=== PATIENT | female | born 1935 | race Caucasian/White ===

== ENCOUNTER 2016-12-11 12:58 | Day surgery (SDC) | payer MEDICARE, OTHER ==
[~2016-12-11 12:58] MED LIST: APIX5TAB PO; DIOV160T60 PO; DULE200A PO; FLAX10008 PO; HYDR12.56 PO; LEVO25TA36 PO; MONT10 PO; MULT400T PO; NITR.4 SL
--- NOTE | 2016-12-12 08:35 | EKG ---
Date Performed: 12/11/2016 Time Performed: 14:15:14 PTAGE: 81 years EKG: Possible ectopic atrial rhythm Anteroseptal infarct - age undetermined Inferior/lateral ST- T changes are nonspecific Low QRS voltages in precordial leads Abnormal ECG PREVIOUS TRACING : 02/05/2016 11.47 Compared to previous tracing, ectopic atrial rhythm has rep laced possible atrial tachycardia with 2:1 AV conduction. DOCTOR: Shane See Interpretating Date/Time 12/12/2016 08:34:42
--- NOTE | 2016-12-24 08:39 | CF ---
cc: KAYLA TREJO M.D. STUDY DATE 12/11/2016 PROCEDURE PERFORMED Transesophageal echocardiogram. INDICATION History of mitral valve repair, evidence of mitral stenosis. CONSENT A fully informed consent was obtained prior to the procedure. The risks of , bleeding, perforation, aspiration, foreseen and unforeseen complications were reviewed. The patient fully appeared to understand the risks. ANESTHESIA As per the Anesthesia Department. PROCEDURE The patient was anesthetized as per the Anesthesia Department. A RAMILA probe was placed into the esophagus up to 40 cm and a transesophageal echo sonogram was performed of the heart. FINDINGS The left atrial appendage was free of thrombus. The mitral valve was heavily calcified with evidence of a previous ring. There was evidence of mitral stenosis which was calculated at a mitral valve area of 1.35 cm2. There was evidence of moderate tricuspid regurgitation. There was evidence of biatrial enlargement. The aortic valve was also moderately thickened. There was decrease motion of the anterior leaflet of the mitral valve. The posterior leaflet was fixed. The aortic valve moved fairly normally. CONCLUSION 1. Evidence of moderate to severe aortic stenosis with a mitral valve area of 1.35 cm2. 2. Slight thickening of the aortic valve. 3. Biatrial enlargement. 4. Normal LV function. 5. Left atrial appendage free of thrombus. PLAN 1. Continue anticoagulation and medical management. If the patient comes symptomatic, one would have to think of mitral valve surgery. 2. Moderate tricuspid regurgitation also noted. Kayla Trejo MD, FRCP,[facility] /12:40 PM /8:24 AM
== END 2016-12-11 15:45 | disposition home or self-care (01) ==
LOC: HDOC 12:58 → HDIC 12:59 → HDOC 15:45
PROVIDERS: ATTEND Internal Medicine Cardiovascular Disease
DX: I08.3 Combined rheumatic disorders of mitral, aortic and tricuspid valves (principal); I51.7 Cardiomegaly; I25.10 Atherosclerotic heart disease of native coronary artery without angina pectoris; I25.2 Old myocardial infarction; I42.9 Cardiomyopathy, unspecified; I10 Essential (primary) hypertension; E78.5 Hyperlipidemia, unspecified; E03.9 Hypothyroidism, unspecified; I95.9 Hypotension, unspecified; R60.9 Edema, unspecified; Z95.1 Presence of aortocoronary bypass graft; Z79.01 Long term (current) use of anticoagulants; Z79.899 Other long term (current) drug therapy
CPT/HCPCS: 93005; 93312; 93320; 93325

== ENCOUNTER 2017-04-03 15:44 | Inpatient (IN) | payer MEDICARE, OTHER ==
[2017-04-03] VITALS (10 sets, daily range): BP systolic 86–118; BP diastolic 45–68; PULSE 64–82; RESP 16–22; TEMP 98.3; O2SAT 94–100
[~2017-04-03] VITALS: Ht 152.4 cm; Wt 79.2 kg
[2017-04-03] MEDS ORDERED: WARF-23 PO (16:11)
[2017-04-03] MEDS ORDERED: MONT10TA4 PO (16:11)
[2017-04-03] MEDS ORDERED: CHOL5000 PO (16:11)
[2017-04-03] MEDS ORDERED: MULT400T PO (16:11)
[2017-04-03] MEDS ORDERED: FURO1TAB60 PO (16:11)
[2017-04-03] MEDS ORDERED: LEVO75TA3 PO (16:11)
[2017-04-03] MEDS ORDERED: POTA-163 PO (16:11)
[2017-04-03] MEDS ORDERED: FLAX10008 (16:11)
[2017-04-03] MEDS ORDERED: VALS1TAB70 PO (16:11)
--- NOTE | 2017-04-03 16:26 | PD ---
HPI Chief Complaint: lightheadedness Time Seen by Provider: 16:05 Travel History International Travel<30 days: No Contact w/Intl Traveler<30days: No Traveled to known affect area: No History of Present Illness HPI 82yo F with PMH of afib on coumadin, CAD s/p CABG 20 years ago was sent in by PMD's office for cardiac enzymes and possible IVF. Pt was seen at PMD's office today because she has been feeling jittery and lightheaded for 3 days. Said she feels more lightheaded when she stands up from sitting position. She does not have any syncopal episodes and no specific episode where she felt like she almost pass out. BP was low in PMD's office at 90/60. Denies any fever, chest pain, sob, n/v, abdominal pain, focal weakness or numbness. PFSH Past Medical History Hx Anticoagulant Therapy: Yes Asthma: Yes Atrial Fibrillation: Yes Heart Rhythm Problems: Yes Cardiac Catheterization: Yes Cardiovascular Problems: Yes High Cholesterol: Yes Coronary Artery Disease: Yes Diminished Hearing: Yes (L EAR) Endocrine: No Genitourinary: No Hypertension: Yes Musculoskeletal: No Neurologic: No Respiratory: Yes (ASTHMA) Immunizations Current: Yes Myocardial Infarction: Yes Thyroid Disease: Yes Tetanus Vaccination: < 5 Years Influenza Vaccination: Yes : 2 Para: 2 Past Surgical History Abdominal Surgery: Yes Appendectomy: Yes (1965) Cardiac Surgery: Yes (MITRAL VALVE REPAIR) Coronary Artery Bypass Graft: Yes Gynecologic Surgery: Yes (HYSTERECTOMY 1995) Hysterectomy: Yes Other Surgery: Yes (ABLASIONS/CARDOVERSIONS) Social History Alcohol Use: No Tobacco Use: No Substance Use: No Allergies-Medications (Allergen,Severity, Reaction): Coded Allergies: albuterol (Verified Allergy, Unknown, 04/03/17) amlodipine (Verified Allergy, Unknown, 04/03/17) atorvastatin (Verified Allergy, Unknown, 04/03/17) choline fenofibrate (Verified Allergy, Unknown, 04/03/17) colesevelam (Verified Allergy, Unknown, 04/03/17) dabigatran etexilate (Verified Allergy, Unknown, 04/03/17) lisinopril (Verified Allergy, Unknown, 04/03/17) pitavastatin (Verified Allergy, Unknown, 04/03/17) rosuvastatin (Verified Allergy, Unknown, 04/03/17) Reported Meds & Prescriptions Reported Meds & Active Scripts Active Reported Vitamin D3 (Cholecalciferol) 2,000 Unit Cap 2,000 Units PO DAILY Levothyroxine (Levothyroxine Sodium) 50 Mcg Tab 50 Mcg PO DAILY Spironolactone 25 Mg Tab 25 Mg PO BIDPC Torsemide 20 Mg Tab 20 Mg PO EVERY OTHER DAY Flaxseed Oil [place]-3 (Flaxseed (Linseed)) 1,000 Mg Cap Montelukast (Montelukast Sodium) 10 Mg Tab 10 Mg PO HS Valsartan 320 Mg Tab 320 Mg PO DAILY Multaq (Dronedarone) 400 Mg Tab 400 Mg PO BID Warfarin 5 Mg Tab 5 Mg PO DAILY Review of Systems Except as stated in HPI: all other systems reviewed are Neg Physical Exam Narrative GENERAL: 82yo F not in distress. SKIN: Focused skin assessment warm/dry. HEAD: Atraumatic. Normocephalic. EYES: Pupils equal and round at 3mm bilaterally. EOMI. ENT: No nasal bleeding or discharge. Mucous membranes pink and moist. NECK: Trachea midline. No JVD. CARDIOVASCULAR: Irregular rhythm at 71bpm. No murmur appreciated. RESPIRATORY: No accessory muscle use. Clear to auscultation. Breath sounds equal bilaterally. GASTROINTESTINAL: Abdomen soft, non-tender, nondistended. MUSCULOSKELETAL: No obvious deformities. No clubbing. No cyanosis. Trace bilateral lower ext edema. NEUROLOGICAL: Awake and alert. No obvious cranial nerve deficits. Motor grossly within normal limits. Normal speech. PSYCHIATRIC: Appropriate mood and affect; insight and judgment normal. Data Data Last Documented VS Vital Signs Date Time Temp Pulse Resp B/P (MAP) Pulse Ox O2 Delivery O2 Flow Rate FiO2 04/03/17 19:10 65 18 100/54 (69) 95 Room Air 04/03/17 15:55 98.3 Orders Orders Basic Metabolic Panel (Bmp) (04/03/17 16:20) Complete Blood Count With Diff (04/03/17 16:20) Magnesium (Mg) (04/03/17 16:20) Troponin I (04/03/17 16:20) Urinalysis - C+S If Indicated (04/03/17 16:20) Orthostatic Vital Signs (04/03/17 16:20) Prothrombin Time / Inr (Pt) (04/03/17 16:21) Act Partial Throm Time (Ptt) (04/03/17 16:21) Electrocardiogram (04/03/17 15:51) Sodium Chlor 0.9% 1000 Ml Inj (Ns 1000 M (04/03/17 17:45) Potassium, Serum (K) (04/03/17 20:36) Ecg Monitoring (04/03/17 17:36) Oximetry (04/03/17 17:36) Sodium Polysty Sulfate Liq (Kayexalate L (04/03/17 17:45) Sodium Chlor 0.9% 1000 Ml Inj (Ns 1000 M (04/03/17 18:45) Urine Culture (04/03/17 18:45) Admit To Inpatient (04/03/17 ) Inpatient Certification (04/03/17 ) Cbc No Diff, Includes Plts (04/04/17 05:00) Cbc No Diff, Includes Plts (04/05/17 05:00) Cbc No Diff, Includes Plts (04/06/17 05:00) Cbc No Diff, Includes Plts (04/07/17 05:00) Cbc No Diff, Includes Plts (04/08/17 05:00) Cbc No Diff, Includes Plts (04/09/17 05:00) Cbc No Diff, Includes Plts (04/10/17 05:00) Basic Metabolic Panel (Bmp) (04/04/17 05:00) Basic Metabolic Panel (Bmp) (04/05/17 05:00) Basic Metabolic Panel (Bmp) (04/06/17 05:00) Basic Metabolic Panel (Bmp) (04/07/17 05:00) Basic Metabolic Panel (Bmp) (04/08/17 05:00) Basic Metabolic Panel (Bmp) (04/09/17 05:00) Basic Metabolic Panel (Bmp) (04/10/17 05:00) Magnesium Oxide (Mag-Ox) (04/03/17 19:00) Magnesium Sulfate Inj (Magnesium Sulfate (04/03/17 19:00) Magnesium Sulfate Inj (Magnesium Sulfate (04/03/17 19:00) Potassium Chlor 20 Meq Premix (Kcl 20 Me (04/03/17 19:00) Potassium Chlor 20 Meq Premix (Kcl 20 Me (04/03/17 19:00) Potassium Chlor 40 Meq Premix (Kcl 40 Me (04/03/17 19:00) Potassium Chlor 40 Meq Premix (Kcl 40 Me (04/03/17 19:00) Potassium Phosphate (K-Phos) (04/03/17 19:00) Potassium Phosphate (K-Phos) (04/03/17 19:00) Potassium Phosphate Inj (Potassium Phosp (04/03/17 19:00) Sodium Phosphate Inj (Sodium Phosphate I (04/03/17 19:00) ^ Medication Admin Instruction (04/03/17 19:00) Notify Dr: Other (04/03/17 19:00) Resp Ezpap/Pep Therapy (04/03/17 19:00) Resp Acapella/Pep/Chest Vibra (04/03/17:00) Resp Incentive Spirometry (04/03/17 19:00) Code Status (04/03/17:00) Activity Bed Rest (04/03/17:00) Elevate Head Of Bed (04/03/17 19:00) Neuro Checks . ORDERED (04/03/17:00) Acetaminophen (Tylenol) (04/03/17 19:00) Ondansetron Inj (Zofran Inj) (04/03/17 19:00) Albuterol-Ipratropium Neb (Duoneb Neb) (04/03/17 19:00) Consult Cardiology (04/03/17 ) Imaging Science Professor / Telemetry JUAN.Q8H (04/03/17 19:00) Scd Bilateral/Knee High JUAN.BID (04/03/17 19:00) ^ Initiate Protocol (04/03/17 19:00) Instruction (04/03/17 19:00) [facility] (04/03/17 19:00) Chlorhexidine 2% Cloth (Chlorhexidine 2% (04/04/17 04:00) Chlorhexidine 2% Cloth (Chlorhexidine 2% (04/03/17 19:00) Mrsa Pcr Surveillance (04/03/17 19:00) Docusate Sodium-Senna (Emelina-Colace) (04/03/17 21:00) Coag Profile (04/04/17 05:00) Coag Profile (04/05/17 05:00) Coag Profile (04/06/17 05:00) Coag Profile (04/07/17 05:00) Coag Profile (04/08/17 05:00) Troponin I (04/03/17 23:59) Troponin I (04/04/17 05:59) Troponin I (04/04/17 11:59) Troponin I (04/04/17 17:59) Sodium (Na) (04/03/17 20:30) Diet Clear Liquid (04/03/17 Dinner) Npo After Midnight W/ Po Meds (04/04/17 Breakfast) Cholecalciferol (Vitamin D3) (04/04/17 09:00) Levothyroxine (Synthroid) (04/04/17 06:00) Montelukast (Singulair) (04/03/17 21:00) Admit Order (Ed Use Only) (04/03/17 19:14) Echo 2d Comp With Doppler (04/04/17 19:00) Labs Laboratory Tests Test 04/03/17 16:30 04/03/17 18:45 White Blood Count 10.2 TH/MM3 Red Blood Count 3.60 MIL/MM3 Hemoglobin 10.8 GM/DL Hematocrit 32.3 % Mean Corpuscular Volume 89.6 FL Mean Corpuscular Hemoglobin 29.9 PG Mean Corpuscular Hemoglobin Concent 33.4 % Red Cell Distribution Width 14.5 % Platelet Count 308 TH/MM3 Mean Platelet Volume 6.9 FL Neutrophils (%) (Auto) 72.6 % Lymphocytes (%) (Auto) 17.0 % Monocytes (%) (Auto) 7.4 % Eosinophils (%) (Auto) 1.2 % Basophils (%) (Auto) 1.8 % Neutrophils # (Auto) 7.4 TH/MM3 Lymphocytes # (Auto) 1.7 TH/MM3 Monocytes # (Auto) 0.8 TH/MM3 Eosinophils # (Auto) 0.1 TH/MM3 Basophils # (Auto) 0.2 TH/MM3 CBC Comment DIFF FINAL Differential Comment Prothrombin Time 25.5 SEC Prothromb Time International Ratio 2.5 RATIO Activated Partial Thromboplast Time 32.8 SEC Blood Urea Nitrogen 46 MG/DL Creatinine 1.70 MG/DL Random Glucose 94 MG/DL Calcium Level 9.8 MG/DL Magnesium Level 2.4 MG/DL Sodium Level 128 MEQ/L Potassium Level 5.6 MEQ/L Chloride Level 96 MEQ/L Carbon Dioxide Level 23.4 MEQ/L Anion Gap 9 MEQ/L Estimat Glomerular Filtration Rate 29 ML/MIN Troponin I 0.27 NG/ML Urine Color YELLOW Urine Turbidity SLIGHT Urine pH 5.5 Urine Specific [place] 1.014 Urine Protein NEG mg/dL Urine Glucose (UA) NEG mg/dL Urine Ketones NEG mg/dL Urine Occult Blood NEG Urine Nitrite NEG Urine Bilirubin NEG Urine Leukocyte Esterase MOD Urine RBC 0-3 /hpf Urine WBC 25-49 /hpf Urine WBC Clumps MOD Urine Squamous Epithelial Cells 0-5 /hpf Urine Bacteria MANY /hpf Microscopic Urinalysis Comment CULTURE INDICATED MDM Medical Decision Making Medical Screen Exam Complete: Yes Emergency Medical Condition: Yes Interpretation(s) EKG: Afib at 71bpm. ST depression I, aVL. Q wave v2, V3 unchanged from prior at 11/2016. Differential Diagnosis Arrhythmia vs. dehydration vs. anemia vs. electrolyte abnormality Narrative Course 82yo F with PMH of afib, CAD s/p CABG 20 years ago presents to the ED with lightheadedness for 3 days. Labs reviewed, no leukocytosis. H/H 10.8/32.3 which is slightly lower than prior. Mild hyponatremia at 128. Mild hyperkalemia at 5.6. Will give kayexylate. BUN/creatinine elevated at 46/1.70 which is elevated from baseline. Troponin is elevated at 0.27. Pt has no chest pain but sob with exertion and significant cardiac history. INR 2.5. Discussed with Dr. Albright who is covering Dr. Trejo. Recommended admission and repeat troponin, CPK and EKG. Recommend NS IVF 50cc/hr and said she will probably not have cardiac cath today since her INR is 2.5. Discussed with Dr. Ventura who is requesting resource room special education teacher admission instead. Discussed with Dr. Chacko who accepted the patient and wants the patient to remain in the [place] ICU. Critical Care Narrative Aggregate critical care time was 50 minutes. Time to perform other separately billable procedures was not included in the critical care time. My time did not include minutes spent treating any other patients simultaneously or on activities that did not directly contribute to the patient's treatment. The services I provided to this patient were to treat and/or prevent clinically significant deterioration that could result in: cardiovascular collapse or . I provided critical care services requiring my management, as noted below: Chart data review, documentation time, medication orders and management, vital sign assessments/reviewing monitor data, ordering and reviewing lab tests, ordering and interpreting/reviewing x-rays and diagnostic studies, care of the patient and discussion of the patient with the admitting physicians. Diagnosis Primary Impression: Elevated troponin Additional Impression: RAMU (acute kidney injury) Admitting Information Admitting Physician Requests: Admit Allison Guzman DO Apr 03, 2017 16:26
[2017-04-03 16:41] LABS: AUTOMATED NEUTROPHIL # 7.4 TH/MM3 (1.8-7.7); BASOPHIL # 0.2 TH/MM3 (0-0.2); BASOPHIL % 1.8 % (0.0-2.0); EOSINOPHIL # 0.1 TH/MM3 (0-0.4); EOSINOPHIL % 1.2 % (0.0-4.0); HEMATOCRIT 32.3 % (35.0-46.0); HEMO FLAGS DIFF FINAL; LYMPHOCYTE # 1.7 TH/MM3 (1.0-4.8); MEAN CELL VOLUME 89.6 FL (80.0-100.0); MEAN CORPUSCULAR HEMOGLOBIN 29.9 PG (27.0-34.0); MEAN CORPUSCULAR HGB CONC 33.4 % (32.0-36.0); MONO % 7.4 % (0.0-8.0); NEUT % 72.6 % (16.0-70.0); PLATELET COUNT 308 TH/MM3 (150-450); RED CELL DISTRIBUTION WIDTH 14.5 % (11.6-17.2); WHITE BLOOD COUNT 10.2 TH/MM3 (4.0-11.0)
[2017-04-03 16:49] LABS: POTASSIUM 5.6 MEQ/L (3.5-5.1)
[2017-04-03 16:52] LABS: BICARBONATE 23.4 MEQ/L (21.0-32.0); MAGNESIUM 2.4 MG/DL (1.5-2.5)
[2017-04-03 16:55] LABS: APTT (PATIENT) 32.8 SEC (24.3-30.1); INTERNATIONAL NORMALIZED RATIO 2.5 RATIO; PROTHROMBIN TIME - PATIENT 25.5 SEC (9.8-11.6)
[2017-04-03] MEDS ORDERED: SODIUM POLYSTYRENE SULFONATE SUSP 15 GM/60 ML CUP PO ONE (17:45)
[2017-04-03] MEDS ORDERED: SODIUM CHLOR 0.9% 1000 ML INJ 1,000 ML IV ONE (17:45)
[2017-04-03] MEDS ORDERED: LEVO50TA4 PO (18:02)
[2017-04-03] MEDS ORDERED: VITA2000 PO (18:02)
[2017-04-03] MEDS ORDERED: TORS20TA PO (18:02)
[2017-04-03] MEDS ORDERED: SPIR25TA PO (18:02)
[2017-04-03 18:49] LABS: BLOOD, URINE NEG (NEG); GLUCOSE,URINE NEG (NEG); KETONE, URINE NEG (NEG); NITRITE,URINE NEG (NEG); PH, URINE 5.5 (5.0-8.5)
[2017-04-03 18:55] LABS: URINE COLOR YELLOW (YELLW/STRAW)
[2017-04-03 18:56] LABS: BACTERIA, URINE MANY /hpf; COMMENT (UR) CULTURE INDICATED; CULTURE IF INDICATED CULTURE INDICATED; RBC, URINE 0-3 /hpf (0-3); SQUAMOUS EPITHELIAL CELL URINE 0-5 /hpf (0-5)
[2017-04-03] MEDS ORDERED: MISCELLANEOUS NURSING INFORMATION XX SCH (19:00)
[2017-04-03] MEDS ORDERED: POTASSIUM PHOSPHATE MONOBASIC 500 MG TAB PO PRN (19:00)
[2017-04-03] MEDS ORDERED: SODIUM PHOSPHATE INJ 30 MMOL in SODIUM CHLOR 0.9% 250 ML INJ 240 ML IV PRN (19:00)
[2017-04-03] MEDS ORDERED: POTASSIUM PHOSPHATE INJ 30 MMOL in SODIUM CHLOR 0.9% 250 ML INJ 250 ML IV PRN (19:00)
[2017-04-03] MEDS ORDERED: POTASSIUM CHLOR 20 MEQ PREMIX 100 ML IV PRN ×2 (19:00)
[2017-04-03] MEDS ORDERED: MAGNESIUM SULFATE INJ 2 GM in SODIUM CHLORIDE 0.9% INJ 96 ML IV PRN (19:00)
[2017-04-03] MEDS ORDERED: CHLORHEXIDINE GLUCONATE 2 % 1 PACK (2 CLOTHS) TOP PRN (19:00)
[2017-04-03] MEDS ORDERED: POTASSIUM PHOSPHATE MONOBASIC 500 MG TAB PO/TUBE PRN (19:00)
[2017-04-03] MEDS ORDERED: POTASSIUM CHLOR 40 MEQ PREMIX 100 ML IV PRN ×2 (19:00)
[2017-04-03] MEDS ORDERED: MAGNESIUM OXIDE 400 MG TAB PO PRN (19:00)
[2017-04-03] MEDS ORDERED: MAGNESIUM SULFATE INJ 4 GM in SODIUM CHLORIDE 0.9% INJ 92 ML IV PRN (19:00)
[2017-04-03] MEDS ORDERED: ONDANSETRON HCL 4 MG/2 ML VIAL IV PUSH PRN (19:00)
[2017-04-03] MEDS ORDERED: RESP: ALBUTEROL 2.5 MG/IPRATROPIUM 0.5 MG NEB (PRN) INH (19:00)
[2017-04-03] MEDS: SODIUM CHLOR 0.9% 1000 ML INJ 1,000 ML IV SCH (19:30)
[2017-04-03] MEDS ORDERED: cefTRIAXone INJ 1,000 MG in SODIUM CHLORIDE 0.9% INJ 100 ML IV SCH (20:00)
[2017-04-03] MEDS: DOCUSATE SODIUM 50 MG/SENNA 8.6 MG TAB PO SCH (21:00)
[2017-04-03] MEDS: CHLORHEXIDINE GLUCONATE 2 % 1 PACK (2 CLOTHS) TOP SCH (21:11)
[2017-04-03] MEDS: MONTELUKAST SODIUM 10 MG TAB PO SCH (21:11)
[2017-04-04] VITALS (30 sets, daily range): BP systolic 82–127; BP diastolic 43–69; PULSE 78–104; RESP 12–38; TEMP 98.2–99.2; O2SAT 95–98
[2017-04-04 04:34] LABS: HEMATOCRIT 27.8 % (35.0-46.0); MEAN CELL VOLUME 87.5 FL (80.0-100.0); MEAN CORPUSCULAR HEMOGLOBIN 30.2 PG (27.0-34.0); MEAN CORPUSCULAR HGB CONC 34.5 % (32.0-36.0); PLATELET COUNT 249 TH/MM3 (150-450); RED BLOOD COUNT 3.18 MIL/MM3 (4.00-5.30); REVIEW FLAG FINAL; WHITE BLOOD COUNT 8.4 TH/MM3 (4.0-11.0)
[2017-04-04 04:45] LABS: APTT (PATIENT) 33.7 SEC (24.3-30.1); INTERNATIONAL NORMALIZED RATIO 2.9 RATIO; PROTHROMBIN TIME - PATIENT 29.5 SEC (9.8-11.6)
[2017-04-04 05:00] LABS: BICARBONATE 20.9 MEQ/L (21.0-32.0)
[2017-04-04] MEDS ORDERED: ALBUMIN 5% INJ 500 ML IV ONE (05:30)
[2017-04-04] MEDS: LEVOTHYROXINE SODIUM 50 MCG TAB PO SCH (05:58)
--- NOTE | 2017-04-04 07:19 | HHI.HP ---
[facility] Service Critical Care Medicine Primary Care Physician Angeline Mitchell MD Admission Diagnosis RAMU, elevated troponin Diagnosis: (1) Normocytic anemia Diagnosis: Secondary (2) Severe mitral stenosis by prior echocardiogram Diagnosis: Secondary (3) Hyponatremia Diagnosis: Secondary (4) History of atrial flutter Diagnosis: Secondary (5) Chronic anticoagulation Diagnosis: Principal (6) Hypothyroidism Diagnosis: Secondary (7) Dyslipidemia Diagnosis: Secondary (8) History of hypertension Diagnosis: Secondary (9) Hyperkalemia Diagnosis: Secondary (10) Cardiomyopathy Diagnosis: Principal (11) Dehydration Diagnosis: Principal (12) Dizziness Diagnosis: Principal (13) Elevated troponin Diagnosis: Principal (14) RAMU (acute kidney injury) Diagnosis: Principal Chief Complaint: "I had don't feel good". Dizzy Travel History International Travel<30 Days: No Contact w/Intl Traveler <30 Da: No Traveled to Known Affected Are: No History of Present Illness This is an 82-year-old female. Did admission 04/03/2017. Past medical history includes cardiomyopathy, hard of hearing left ear, coronary artery disease status post CABG 3 with mitral valve repair, atrial flutter with history of ablation, dyslipidemia, hypertension hypothyroidism.. Yesterday afternoon, patient was sent to [place] ED for primary care physician's office for elevated cardiac enzymes and possible IVF. Pt was seen at primary care physician's office 04/03 secondary to "feeling lightheaded and not herself for several days. Said she feels more lightheaded when she stands up from sitting position. She does not have any syncopal episodes and no specific episode where she felt like she almost pass out. In the ED, patient was noted to be hypotensive. Patient elevated potassium 5.6. Creatinine 1.7. Elevated troponin 0.20. She denies any chest pain or shortness of breath. Received 2 L normal saline along with 250 cc's of 5% albumin. EKG revealed Q waves in V2 and V3 with intermittent first AV block possibly intermittent A. fib. Cardiology was notified and recommended gentle hydration with normal saline at 50 cc an hour with consultation for further evaluation. Warfarin has been held for the request. The present time, patient is currently going of back pain and "wants to go home ". She says she feels better after hydration prior to admission. Her blood pressure is currently within normal limits.. Review of Systems Constitutional: COMPLAINS OF: Fatigue, DENIES: Fever, Weight gain, Weight loss Endocrine: DENIES: Polydipsia, Polyuria Eyes: DENIES: Vision loss, Double Vision Ears, nose, mouth, throat: COMPLAINS OF: Hearing loss, DENIES: Epistaxis Respiratory: DENIES: Apneas, Cough, Hemoptysis, Sputum production, Shortness of breath Cardiovascular: DENIES: Chest pain Gastrointestinal: DENIES: Abdominal pain, Difficulty Swallowing Genitourinary: DENIES: Dysuria Musculoskeletal: COMPLAINS OF: Back pain, DENIES: Joint pain Integumentary: DENIES: Abnormal pigmentation Hematologic/lymphatic: DENIES: Bruising Immunologic/allergic: DENIES: Eczema Neurologic: DENIES: Headache Psychiatric: DENIES: Anxiety, Confusion, Depression Past Family Social History Allergies: Coded Allergies: albuterol (Verified Allergy, Unknown, 04/03/17) amlodipine (Verified Allergy, Unknown, 04/03/17) atorvastatin (Verified Allergy, Unknown, 04/03/17) choline fenofibrate (Verified Allergy, Unknown, 04/03/17) colesevelam (Verified Allergy, Unknown, 04/03/17) dabigatran etexilate (Verified Allergy, Unknown, 04/03/17) lisinopril (Verified Allergy, Unknown, 04/03/17) pitavastatin (Verified Allergy, Unknown, 04/03/17) rosuvastatin (Verified Allergy, Unknown, 04/03/17) Past Medical History Left ear hard of hearing Atherosclerotic heart disease history of [place] Atrial flutter history ablation cardioversion by Dr. Coleman Tricuspid valve insufficiency Mitral valve insufficiency Dyslipidemia Hypertension Hypothyroidism Chronic anticoagulation Past Surgical History Appendectomy Total abdominal hysterectomy CABG 3 - mitral valve repair 1996 Left leg vein stripping History of cardioversion/ablation Reported Medications Warfarin 5 mg by mouth daily Dronedarone 400 mg by mouth twice a day Valsartan 320 mg by mouth daily Spironolactone 25 mg by mouth twice a day Torsemide 20 mg by mouth every other day Montelukast 10 mg by mouth at night Levothyroxine 50 g by mouth daily Cholecalciferol 2000 units by mouth daily Active Ordered Medications Reviewed in EMR Family History Father from heart disease and congestive heart delay. Mother unknown causes. Social History No tobacco, alcohol or IV drug use. Physical Exam Vital Signs Vital Signs Date Time Temp Pulse Resp B/P (MAP) Pulse Ox O2 Delivery O2 Flow Rate FiO2 04/04/17 06:00 104 04/04/17 05:00 78 04/04/17 04:00 84 04/04/17 03:00 94 12 86/52 (63) 97 04/04/17 02:00 84 12 97/52 (67) 97 04/04/17 02:00 84 04/04/17 01:00 80 12 89/54 (66) 96 04/04/17 00:00 84 04/04/17 00:00 98.2 84 24 98/53 (68) 97 04/03/17 23:00 72 17 87/45 (59) 97 04/03/17 22:00 64 04/03/17 21:20 100 21 04/03/17 20:44 76 04/03/17 20:44 98.3 76 22 115/68 (84) 04/03/17 20:39 04/03/17 20:12 66 18 118/60 (79) 98 Room Air 04/03/17 19:10 65 18 100/54 (69) 95 Room Air 04/03/17 18:06 75 16 96/52 (67) 94 04/03/17 17:43 94 Room Air 04/03/17 16:24 74 16 86/48 (61) 68 16 92/55 (67) 96 18 99/56 (70) 04/03/17 16:14 72 98 Room Air 04/03/17 16:08 (77) 04/03/17 15:55 98.3 82 18 108/61 (77) 100 Room Air Physical Exam GENERAL: This is an 82-year-old male currently resting in bed in no acute distress SKIN: Warm and dry. No rash HEAD: Atraumatic. Normocephalic. EYES: Pupils equal and round about 2 mm bilaterally and reactive. No scleral icterus. No injection or drainage. ENT: No nasal bleeding or discharge. Mucous membranes pink and moist. NECK: Trachea midline. No JVD. CARDIOVASCULAR: Regular rate and rhythm. S1, S2. No S4. 1/6 systolic murmur RESPIRATORY: No accessory muscle use. Clear to auscultation. Breath sounds equal bilaterally. GASTROINTESTINAL: Abdomen soft, non-tender, nondistended. Active bowel sounds appreciated MUSCULOSKELETAL: Extremities without significant peripheral edema. No obvious deformities. NEUROLOGICAL: Awake and alert. No obvious cranial nerve deficits. Motor grossly within normal limits. Five out of 5 muscle strength in the arms and legs. Normal speech. Laboratory Laboratory Tests Test 04/03/17 16:30 04/03/17 18:45 04/03/17 20:50 04/03/17 21:09 White Blood Count 10.2 Red Blood Count 3.60 Hemoglobin 10.8 Hematocrit 32.3 Mean Corpuscular Volume 89.6 Mean Corpuscular Hemoglobin 29.9 Mean Corpuscular Hemoglobin Concent 33.4 Red Cell Distribution Width 14.5 Platelet Count 308 Mean Platelet Volume 6.9 Neutrophils (%) (Auto) 72.6 Lymphocytes (%) (Auto) 17.0 Monocytes (%) (Auto) 7.4 Eosinophils (%) (Auto) 1.2 Basophils (%) (Auto) 1.8 Neutrophils # (Auto) 7.4 Lymphocytes # (Auto) 1.7 Monocytes # (Auto) 0.8 Eosinophils # (Auto) 0.1 Basophils # (Auto) 0.2 CBC Comment DIFF FINAL Differential Comment Prothrombin Time 25.5 Prothromb Time International Ratio 2.5 Activated Partial Thromboplast Time 32.8 Blood Urea Nitrogen 46 Creatinine 1.70 Random Glucose 94 Calcium Level 9.8 Magnesium Level 2.4 Sodium Level 128 131 Potassium Level 5.6 5.5 Chloride Level 96 Carbon Dioxide Level 23.4 Anion Gap 9 Estimat Glomerular Filtration Rate 29 Troponin I 0.27 Urine Color YELLOW Urine Turbidity SLIGHT Urine pH 5.5 Urine Specific [place] 1.014 Urine Protein NEG Urine Glucose (UA) NEG Urine Ketones NEG Urine Occult Blood NEG Urine Nitrite NEG Urine Bilirubin NEG Urine Leukocyte Esterase MOD Urine RBC 0-3 Urine WBC 25-49 Urine WBC Clumps MOD Urine Squamous Epithelial Cells 0-5 Urine Bacteria MANY Microscopic Urinalysis Comment CULTURE INDICATED Nasal Screen MRSA (PCR) MRSA NOT DETECTED Test 04/04/17 00:00 04/04/17 04:11 04/04/17 06:16 Troponin I 0.20 0.24 White Blood Count 8.4 Red Blood Count 3.18 Hemoglobin 9.6 Hematocrit 27.8 Mean Corpuscular Volume 87.5 Mean Corpuscular Hemoglobin 30.2 Mean Corpuscular Hemoglobin Concent 34.5 Red Cell Distribution Width 14.0 Platelet Count 249 Mean Platelet Volume 6.9 Prothrombin Time 29.5 Prothromb Time International Ratio 2.9 Activated Partial Thromboplast Time 33.7 Blood Urea Nitrogen 33 Creatinine 1.20 Random Glucose 86 Calcium Level 8.6 Sodium Level 134 Potassium Level 5.0 Chloride Level 105 Carbon Dioxide Level 20.9 Anion Gap 8 Estimat Glomerular Filtration Rate 43 Lactic Acid Level 1.0 Date/Time Source Procedure Growth Status 04/03/17 18:45 Urine Clean Catch Urine Culture Pending Received Result Diagram: 04/04/17 0411 04/04/17 0411 Imaging Last Impressions Chest X-Ray 04/04/17 0000 Signed Impressions: Service Date/Time: Tuesday, April 04, 2017 07:58 - CONCLUSION: No acute disease. No significant change has occurred. Rafael Nichols MD Septic Shock Reassessment Septic shock perfusion: reassessment completed Caprini VTE Risk Assessment Caprini VTE Risk Assessment: Mod/High Risk (score >= 2) Caprini Risk Assessment Model Point Value = 1 Point Value = 2 Point Value = 3 Point Value = 5 Age 41-60 Minor surgery BMI > 25 kg/m2 Swollen legs Varicose veins or History of unexplained or recurrent spontaneous Oral contraceptives or hormone replacement Sepsis (< 1 month) Serious lung disease, including pneumonia (< 1 month) Abnormal pulmonary function Acute myocardial infarction Congestive heart failure (< 1 month) History of inflammatory bowel disease Medical patient at bed rest Age 61-74 Arthroscopic surgery Major open surgery (> 45 min) Laparoscopic surgery (> 45 min) Malignancy Confined to bed (> 72 hours) Immobilizing plaster cast Central venous access Age >= 75 History of VTE Family history of VTE Factor V Leiden Prothrombin [id number] Lupus anticoagulant Anticardiolipin antibodies Elevated serum homocysteine Heparin-induced thrombocytopenia Other congenital or acquired thrombophilia Stroke (< 1 month) Elective arthroplasty Hip, pelvis, or leg fracture Acute spinal cord injury (< 1 month) Prophylaxis Regimen Total Risk Factor Score Risk Level Prophylaxis Regimen 0-1 Low Early ambulation 2 Moderate Order ONE of the following: *Sequential Compression Device (SCD) *Heparin 5000 units SQ BID 3-4 Higher Order ONE of the following medications: *Heparin 5000 units SQ TID *Enoxaparin/Lovenox 40 mg SQ daily (WT < 150 kg, CrCl > 30 mL/min) *Enoxaparin/Lovenox 30 mg SQ daily (WT < 150 kg, CrCl > 10-29 mL/min) *Enoxaparin/Lovenox 30 mg SQ BID (WT < 150 kg, CrCl > 30 mL/min) AND/OR *Sequential Compression Device (SCD) 5 or more Highest Order ONE of the following medications: *Heparin 5000 units SQ TID (Preferred with Epidurals) *Enoxaparin/Lovenox 40 mg SQ daily (WT < 150 kg, CrCl > 30 mL/min) *Enoxaparin/Lovenox 30 mg SQ daily (WT < 150 kg, CrCl > 10-29 mL/min) *Enoxaparin/Lovenox 30 mg SQ BID (WT < 150 kg, CrCl > 30 mL/min) AND *Sequential Compression Device (SCD) Assessment and Plan Assessment and Plan Neuro/Psych: Anxiety NOS Left ear [place] Currently on acetaminophen for pain 1-10/fever CV: Coronary artery disease status post CABG 3 with mitral valve repair 1997 Severe mitral stenosis by RAMILA 01/[address] Trejo. Valve 1.35 cm Atherosclerotic heart disease history of [place] Atrial flutter history of ablation and cardioversion by Dr. Coleman History of hypertension Dyslipidemia Currently hypotensive likely secondary to intravascular volume depletion - resolving with normal active History of ischemic cardiac ejection fraction: 57% Elevated troponin RAMILA 01/05 revealed EF 57%. Moderate to severe MS. Valve area 1.357 m. Normal LV function. Currently holding Dronedarone 400 mg by mouth twice a day, valsartan 320 mg by mouth daily, spironolactone 25 mg twice a day. Patient's been off torsemide 20 mg every other day for several weeks. Dr. Trejo has been consulted On normal saline at 50 cc an hour. Continue with gentle hydration Holding anticoagulation per cardiology request for possible heart catheterization. EKG admission revealed first AV block versus atrial flutter. Q waves in V2 and V3. Troponins trended from 0.20-0.24. Patient is currently denied chest pain. Resp: Abnormal PFTs - obstructive type pattern Dyspnea on exertion Nasal cannula to maintain saturations greater than equal to 92% Incentive spirometry while awake Chest x-ray has been ordered with results pending GI: Patient is currently nothing by mouth except for ice chips and sips Not requiring any GI prophylaxis Patient is currently on Emelina-Colace (docusate sodium/senna) 1 tablet twice a day for bowel regimen : No indication for Recinos catheter Endo: Hypothyroidism Continue levothyroxine 50 mg by mouth daily. TSH is been ordered. Results pending Sliding-scale insulin only if indicated to maintain euglycemia Renal: Acute kidney injury - likely prerenal secondary to dehydration - resolving Creatinine 1.7 on admission. Currently 1.2. Avoid nephrotoxic drugs. Noted that valsartan and spironolactone and torsemide all been held Currently on normal saline at 50 cc an hour. Recheck BMP in a.m. Heme: Normocytic anemia Chronic warfarin use Monitor CBC daily. Follow trends. Does not be transfusion she should at this time. Warfarin 5 mill grams by mouth daily has been held. Recheck PT/INR in a.m. ID: Currently on ceftriaxone 1 g IV to 24 hours for possible UTI or cystitis. UA has been pending MSK: Osteoporosis Out of bed/PT evaluate and treat Continue cholecalciferol 2000 units by mouth daily FEN: Hyperkalemia Status post 15 g Kayexalate in ED. Potassium currently 5.0. Recheck in AM. Access - Utilize peripheral IV. Central line if indicated Prophylaxis - GI - not indicated - DVT - SCD/warfarin INR is currently 2.9 Level II admission - Code Status Full code Discussed Condition With Patient. 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 Care plan discussed and all questions answered. Problem Qualifiers (1) Hypothyroidism: Qualified Codes: E03.9 - Hypothyroidism, unspecified (2) Cardiomyopathy: Qualified Codes: I42.9 - Cardiomyopathy, unspecified Vineet Mirza MD Apr 04, 2017 07:19
[2017-04-04] MEDS: SODIUM CHLOR 0.9% 1000 ML INJ 1,000 ML IV SCH (07:34)
[2017-04-04] MEDS: CHOLECALCIFEROL (VIT D3) 1000 UNIT TAB PO SCH (08:27)
[2017-04-04] MEDS: DOCUSATE SODIUM 50 MG/SENNA 8.6 MG TAB PO SCH ×2 (08:28→20:31)
--- NOTE | 2017-04-04 08:55 | RADRPT ---
EXAM DATE/TIME: 04/04/2017 07:58 [place] COMPARISON: CHEST SINGLE AP, November 18, 2013, 12:29. INDICATIONS : Short of breath. MEDICAL HISTORY : Myocardial infarction. Hypercholesterolemia. Hypertension. Thyroid disease. CAD. A-fib. Asthma. SURGICAL HISTORY : Hysterectomy. Mitral valve repair. Cardiac cath. Cardiac ablation. ENCOUNTER: Initial ACUITY: 1 day PAIN SCORE: 0/10 LOCATION: chest FINDINGS: A single view of the chest demonstrates the lungs to be aerated without evidence of mass, infiltrate or effusion. There is elevation of the right hemidiaphragm which is stable compared to the prior maritza dy. The heart size is enlarged but stable. There is evidence of previous cardiothoracic surgery. The bony structures are stable. No significant change compared to the prior exam. CONCLUSION: No acute disease. No significant change has occurred. Rafael Nichols MD on April 04, 2017 at 8:53 Board Certified Radiologist. This report was verified electronically.
--- NOTE | 2017-04-04 10:14 | ECHRPT ---
Indication: heart failure CONCLUSIONS Normal left ventricular size. The left ventricular systolic function is normal with an estimated ejection fraction in the range of 50-55%. No definite wall motion abnormalities. Moderate leaflet calcification and sclerosis with no evidence for mitral stenosis. [id number] mitral valve regurgitation. Trileaflet aortic valve. Moderate leaflet sclerosis with no evidence for aortic stenosis. Structurally normal tricuspid valve. There is mild tricuspid valve regurgitation. The estimated systolic pulmonary pressure is 68 mm Hg. BP: / HR: Rhythm: MEASUREMENTS (Male / Female) Normal Values Technical Quality:Technically difficult study 2D ECHO LV Diastolic Diameter PLAX 4.1 cm 4.2 - 5.9 / 3.9 - 5.3 cm LV Systolic Diameter PLAX 3.2 cm IVS Diastolic Thickness 1.3 cm 0.6 - 1.0 / 0.6 - 0.9 cm LVPW Diastolic Thickness 1.1 cm 0.6 - 1.0 / 0.6 - 0.9 cm LV Relative Wall Thickness 0.6 RV Internal Dim ED PLAX 4.6 cm LVOT Diameter 2.2 cm M-MODE Aortic Root Diameter MM 4.0 cm LA Systolic Diameter MM 2.8 cm LA Ao Ratio MM 0.7 AV Cusp Separation MM 1.2 cm DOPPLER AV Peak Velocity 172.0 cm/s AV Peak Gradient 11.8 mmHg AV Mean Gradient 6.0 mmHg AV Velocity Time Integral 34.6 cm LVOT Peak Velocity 85.7 cm/s LVOT Peak Gradient 2.9 mmHg LVOT Velocity Time Integral 16.0 cm AV Area Cont Eq vti 1.8 cm AV Area Cont Eq pk 1.9 cm MV Area PHT 3.1 cm TR Peak Velocity 369.0 cm/s TR Peak Gradient 54.5 mmHg Right Atrial Pressure 10.0 mmHg Pulmonary Artery Systolic Pressu 64.5 mmHg Right Ventricular Systolic Press 64.5 mmHg FINDINGS LEFT VENTRICLE Normal left ventricular size. The left ventricular systolic function is normal with an estimated ejection fraction in the range of 50-55%. No definite wall motion abnormalities. RIGHT VENTRICLE Normal right ventricular size and systolic function. LEFT ATRIUM The left atrial size is normal. RIGHT ATRIUM The right atrial size is normal. ATRIAL SEPTUM Normal atrial septal thickness without atrial level shunting by limited color doppler interrogation. AORTA The aortic root and proximal ascending aorta are normal in size on limited imaging. MITRAL VALVE Moderate leaflet calcification and sclerosis with no evidence for mitral stenosis. [id number] mitral valve regurgitation. AORTIC VALVE Trileaflet aortic valve. Moderate leaflet sclerosis with no evidence for aortic stenosis. No aortic valve regurgitation. TRICUSPID VALVE Structurally normal tricuspid valve. There is mild tricuspid valve regurgitation. The estimated systolic pulmonary pressure is 68 mm Hg . PULMONARY VALVE No pulmonary valve regurgitation or stenosis. VESSELS The inferior vena cava is normal in size. PERICARDIUM No pericardial effusion. Shane See MD (Electronically Signed) Final Date:04 April 2017 10:13
[2017-04-04] MEDS ORDERED: SODIUM CHLORID 0.9% 500 ML INJ 500 ML IV ONE ×2 (13:45)
[2017-04-04] MEDS ORDERED: ALBUMIN 25% INJ 50 ML IV ONE (14:00)
[2017-04-04] MEDS: CEFEPIME INJ 1,000 MG in SODIUM CHLORIDE 0.9% INJ 100 ML IV SCH (15:04)
[2017-04-04] MEDS: ACETAMINOPHEN 325 MG TAB PO PRN ×2 (15:53→22:59)
--- NOTE | 2017-04-04 15:54 | MB ---
cc: KAYLA TREJO M.D. DATE OF CONSULTATION 04/04/2017 Thank you for asking us to see this very pleasant 82-year-old white female who is a patient of Dr. Mitchell. HISTORY OF PRESENT ILLNESS She presents now with elevated troponin, shortness of breath and generalized weakness. She has a prior history of bypass surgery, mitral valve repair, atrial flutter with history of ablation. She came to Dr. Mitchell's office, was noted to have a low blood pressure and feeling light-headed, and has not felt well for the last few days. In the emergency room she was noted to be hypotensive with elevated creatinine and potassium, elevated troponin which is probably secondary to the creatinine as was the BNP. She was hydrated and now feels somewhat better. PAST MEDICAL HISTORY Bypass surgery, mitral repair, atrial flutter with ablation as above. FAMILY HISTORY Noncontributory. SOCIAL HISTORY Non-smoker. Non-drinker. No drugs. MEDICATIONS Medications at home included: 1. Warfarin. 2. Multaq. 3. Valsartan. 4. Spironolactone. 5. Torsemide. 6. Montelukast. 7. Levothyroxine. 8. Cholecalciferol. PHYSICAL EXAMINATION VITAL SIGNS: Pulse was 94. Initially in the ER the blood pressure was 86/52. EYES: No xanthelasma. MOUTH: No cyanosis or pallor. NECK: No JVD. HEART: Two heart sounds. No murmurs. CHEST: Clear. ABDOMEN: Soft. No hepatosplenomegaly. EXTREMITIES: Legs reveal no significant edema. NEUROLOGIC: Grossly intact. SKIN: Intact. LABORATORY TESTS White count 2.3, hemoglobin 10.8, platelet count 308,000. Creatinine 1.7. Troponin-I 0.27. EKG showed normal sinus rhythm. ASSESSMENT AND PLAN This is a patient with a chest x-ray suggestive of congestive heart failure. I agree with gentle hydration. I agree with the low blood pressure of stopping most of the blood pressure medications. This can be assessed again as an outpatient and if the blood pressure rises they can be restarted. At this point she is having gentle hydration. Chest x-ray reportedly shows no acute disease. At this point the patient appears to be dehydrated with low blood pressure. Given her advanced age we will tolerate a higher blood pressure. If she rules out she can be discharged, however if she has more chest pain we will have a low threshold for cardiac cath. Thank you kindly for asking us to see this very pleasant lady who is well-known to me. Kayla Trejo MD, CP,[facility]/AYESHA /3:14 PM /3:28 PM MTDD
[2017-04-04] MEDS ORDERED: ASPIRIN 325 MG TAB PO ONE (20:00)
[2017-04-04] MEDS: MONTELUKAST SODIUM 10 MG TAB PO SCH (20:31)
[2017-04-05] VITALS (26 sets, daily range): BP systolic 92–161; BP diastolic 46–91; PULSE 95–103; RESP 12–31; TEMP 97.9–98.8; O2SAT 94–97
[2017-04-05] MEDS: SODIUM CHLOR 0.9% 1000 ML INJ 1,000 ML IV SCH (02:12)
[2017-04-05] MEDS: CHLORHEXIDINE GLUCONATE 2 % 1 PACK (2 CLOTHS) TOP SCH (02:32)
[2017-04-05] MEDS: CEFEPIME INJ 1,000 MG in SODIUM CHLORIDE 0.9% INJ 100 ML IV SCH ×2 (02:32→15:17)
[2017-04-05] MEDS: LEVOTHYROXINE SODIUM 50 MCG TAB PO SCH (05:55)
[2017-04-05 06:23] LABS: HEMATOCRIT 28.3 % (35.0-46.0); MEAN CELL VOLUME 88.3 FL (80.0-100.0); MEAN CORPUSCULAR HGB CONC 33.9 % (32.0-36.0); PLATELET COUNT 247 TH/MM3 (150-450); RED BLOOD COUNT 3.21 MIL/MM3 (4.00-5.30); RED CELL DISTRIBUTION WIDTH 13.9 % (11.6-17.2); REVIEW FLAG FINAL; WHITE BLOOD COUNT 10.5 TH/MM3 (4.0-11.0)
[2017-04-05 06:29] LABS: POTASSIUM 4.7 MEQ/L (3.5-5.1)
[2017-04-05 06:32] LABS: APTT (PATIENT) 34.4 SEC (24.3-30.1); INTERNATIONAL NORMALIZED RATIO 2.3 RATIO; PROTHROMBIN TIME - PATIENT 23.4 SEC (9.8-11.6)
[2017-04-05 06:52] LABS: BICARBONATE 20.6 MEQ/L (21.0-32.0); INDIRECT BILIRUBIN 0.7 MG/DL (0.0-0.8); MAGNESIUM 1.9 MG/DL (1.5-2.5); TOTAL BILIRUBIN ADULT 0.9 MG/DL (0.2-1.0)
[2017-04-05] MEDS: ASPIRIN 81 MG CHEW TAB PO SCH (08:34)
[2017-04-05] MEDS: DOCUSATE SODIUM 50 MG/SENNA 8.6 MG TAB PO SCH ×2 (08:35→21:00)
[2017-04-05] MEDS: CHOLECALCIFEROL (VIT D3) 1000 UNIT TAB PO SCH (08:35)
--- NOTE | 2017-04-05 10:13 | HHI.PR ---
Subjective Remarks patient seen in room in follow-up for acute coronary syndrome and hypotension? Cardiogenic shock Cardiology evaluation completed. Patient will need cardiac catheterization and will be transferred to the main hospital Objective Vitals Vital Signs Date Time Temp Pulse Resp B/P (MAP) Pulse Ox O2 Delivery O2 Flow Rate FiO2 04/05/17 09:00 100 17 101/47 (65) 04/05/17 08:00 99 04/05/17 08:00 98.5 98 25 107/65 (79) 04/05/17 07:30 97 21 04/05/17 07:00 100 13 104/67 (79) 94 04/05/17 06:00 100 04/05/17 06:00 100 28 134/73 (93) 96 04/05/17 05:00 98 04/05/17 05:00 98 16 108/66 (80) 95 04/05/17 04:00 98 04/05/17 04:00 98.4 98 24 100/59 (73) 94 04/05/17 03:00 96 04/05/17 03:00 96 12 99/59 (72) 04/05/17 02:00 96 24 93/47 (62) 04/05/17 02:00 96 04/05/17 01:00 96 24 103/50 (67) 97 04/05/17 00:00 98.8 96 19 100/50 (67) 97 04/05/17 00:00 96 04/04/17 23:00 96 24 127/63 (84) 04/04/17 22:00 96 14 116/60 (78) 04/04/17 22:00 96 04/04/17 21:00 96 23 119/65 (83) 04/04/17 20:00 98 04/04/17 20:00 98.4 98 23 108/57 (74) 96 04/04/17 19:20 95 21 04/04/17 19:00 96 24 121/61 (81) 97 04/04/17 18:00 96 22 123/66 (85) 04/04/17 18:00 96 04/04/17 17:00 96 27 114/63 (80) 04/04/17 16:00 96 04/04/17 16:00 98.6 96 34 113/59 (77) 98 04/04/17 15:07 96 27 106/57 (73) 04/04/17 14:21 96 23 97/53 (68) 04/04/17 14:00 96 04/04/17 14:00 96 29 107/61 (76) 04/04/17 13:21 96 28 86/48 (61) 04/04/17 12:51 96 24 84/44 (57) 04/04/17 12:26 96 23 84/48 (60) 04/04/17 12:05 96 14 82/47 (59) 04/04/17 12:00 99.2 96 15 87/43 (58) 98 04/04/17 12:00 96 04/04/17 11:00 94 25 99/46 (63) I/O 04/04/17 04/04/17 04/04/17 04/05/17 04/05/17 04/05/17 07:00 15:00 23:00 07:00 15:00 23:00 Intake Total 1050 ml 550 ml 2222 ml 1230 ml Output Total 1000 ml 800 ml 1300 ml Balance 1050 ml -450 ml 1422 ml -70 ml Intake Oral 900 ml 480 ml IV Total 1050 ml 550 ml 1322 ml 750 ml Output Urine Total 1000 ml 800 ml 1300 ml # Voids 4 # Bowel Movements 1 0 0 Result Diagram: 04/05/17 0555 04/05/17 0555 Imaging Last Impressions Chest X-Ray 04/04/17 0000 Signed Impressions: Service Date/Time: Tuesday, April 04, 2017 07:58 - CONCLUSION: No acute disease. No significant change has occurred. Rafael Nichols MD Objective Remarks GENERAL: This is a well-nourished, well-developed patient, in no apparent distress. CARDIOVASCULAR: Regular rate and rhythm without murmurs, gallops, or rubs. RESPIRATORY: Clear to auscultation. Breath sounds equal bilaterally. No wheezes , rales, or rhonchi. GASTROINTESTINAL: Abdomen soft, non-tender, nondistended. Normal active bowel sounds MUSCULOSKELETAL: Extremities without clubbing, cyanosis, or edema. NEURO: Left ear deafness, Alert & Oriented x4 to person, place, time, situation. Moves all ext x4 A/P Assessment and Plan Patient seen in room. Sitting in bedside chair without distress. No further discomfort or shortness of breath Patient with 1. Acute coronary syndrome, rule out non-ST elevation NC, cardiac catheterization pending 2. Hypotension, improved after gentle IV hydration 3. CHF exacerbation, mild and resolved 4. Hyponatremia, secondary to CHF exacerbation, improved 5. Abnormal TSH while on Synthroid, continue current management with outpatient follow-up? Euthyroid sick syndrome Merced Ventura MD Apr 05, 2017 10:13
--- NOTE | 2017-04-05 12:16 | EKG ---
Date Performed: 04/03/2017 Time Performed: 15:51:47 PTAGE: 82 years EKG: Sinus rhythm WITH SINUS ARRHYTHMIA LOW QRS VOLTAGE IN PRECORDIAL LEADS SEPTAL MYOCARDIAL INFARCTION ABNORMAL ECG PREVIOUS TRACING : 12/11/2016 14.15 DOCTOR: Steffanie Villatoro Interpretating Date/Time 04/05/2017 12:15:42
--- NOTE | 2017-04-05 17:37 | PD.CARD.PN ---
Subjective Subjective Remarks NO COMPLAINTS OF CHEST PAIN OR SOB TROPONIN POSITIVE FOR ACS TELEMETRY SHOWS ATRIAL FIBRILLATION, HR 100s Objective Medications Current Medications Medications (Trade) Dose Ordered Sig/Rona Route Start Time Stop Time Status Last Admin Sodium Chloride 1,000 ml @ 50 mls/hr Q20H IV 04/03/17 18:45 04/05/17 02:12 (Mag-Ox) 800 mg UNSCH PRN PO 04/03/17 19:00 Magnesium Sulfate 4 gm/Sodium Chloride 100 ml @ 50 mls/hr UNSCH PRN IV 04/03/17 19:00 Magnesium Sulfate 2 gm/Sodium Chloride 100 ml @ 50 mls/hr UNSCH PRN IV 04/03/17 19:00 Potassium Chloride 100 ml @ 50 mls/hr Q2H PRN IV 04/03/17 19:00 Potassium Chloride 100 ml @ 50 mls/hr Q2H PRN IV 04/03/17 19:00 Potassium Chloride 100 ml @ 50 mls/hr Q2H PRN IV 04/03/17 19:00 Potassium Chloride 100 ml @ 25 mls/hr UNSCH PRN IV 04/03/17 19:00 (K-Phos) 2,000 mg Q4H PRN PO 04/03/17 19:00 (K-Phos) 2,000 mg UNSCH PRN PO/TUBE 04/03/17 19:00 Potassium Phosphate 30 mmol/ Sodium Chloride 260 ml @ 42 mls/hr UNSCH PRN IV 04/03/17 19:00 Sodium Phosphate 30 mmol/Sodium Chloride 250 ml @ 42 mls/hr UNSCH PRN IV 04/03/17 19:00 (Tylenol) 650 mg Q6H PRN PO 04/03/17 19:00 04/04/17 22:59 (Zofran Inj) 4 mg Q6H PRN IV PUSH 04/03/17 19:00 Miscellaneous Information 1 Q361D XX 04/03/17 19:00 (Chlorhexidine 2% Cloth) 3 pack Taper DAILY@04 TOP 04/04/17 04:00 03/31/18 03:59 04/05/17 02:32 (Chlorhexidine 2% Cloth) 3 pack UNSCH PRN TOP 04/03/17 19:00 (Emelina-Colace) 1 tab BID PO 04/03/17 21:00 04/04/17 20:31 (Vitamin D3) 2,000 units DAILY PO 04/04/17 09:00 04/05/17 08:35 (Synthroid) 50 mcg DAILY@0600 PO 04/04/17 06:00 04/05/17 05:55 (Singulair) 10 mg HS PO 04/03/17 21:00 04/04/17 20:31 Cefepime HCl 1000 mg/Sodium Chloride 100 ml @ 200 mls/hr Q12H IV 04/04/17 15:00 04/05/17 15:17 (Aspirin Chew) 81 mg DAILY PO 04/05/17 09:00 04/05/17 08:34 Vital Signs / I&O Vital Signs Date Time Temp Pulse Resp B/P (MAP) Pulse Ox O2 Delivery O2 Flow Rate FiO2 04/05/17 16:56 102 04/05/17 16:53 98.6 101 20 161/91 (114) 97 04/05/17 15:00 100 16 107/67 (80) 04/05/17 14:00 102 20 125/73 (90) 04/05/17 14:00 102 04/05/17 13:00 100 29 140/82 (101) 04/05/17 12:41 100 31 122/80 (94) 04/05/17 12:00 100 27 04/05/17 12:00 100 04/05/17 11:36 97.9 100 28 106/59 (75) 96 04/05/17 11:00 100 12 94/46 (62) 04/05/17 10:00 100 30 92/52 (65) 04/05/17 10:00 100 04/05/17 09:00 100 17 101/47 (65) 04/05/17 08:00 99 04/05/17 08:00 98.5 98 25 107/65 (79) 04/05/17 07:30 97 21 04/05/17 07:00 100 13 104/67 (79) 94 04/05/17 06:00 100 04/05/17 06:00 100 28 134/73 (93) 96 04/05/17 05:00 98 04/05/17 05:00 98 16 108/66 (80) 95 04/05/17 04:00 98 04/05/17 04:00 98.4 98 24 100/59 (73) 94 04/05/17 03:00 96 04/05/17 03:00 96 12 99/59 (72) 04/05/17 02:00 96 24 93/47 (62) 04/05/17 02:00 96 04/05/17 01:00 96 24 103/50 (67) 97 04/05/17 00:00 98.8 96 19 100/50 (67) 97 04/05/17 00:00 96 04/04/17 23:00 96 24 127/63 (84) 04/04/17 22:00 96 14 116/60 (78) 04/04/17 22:00 96 04/04/17 21:00 96 23 119/65 (83) 04/04/17 20:00 98 04/04/17 20:00 98.4 98 23 108/57 (74) 96 04/04/17 19:20 95 21 04/04/17 19:00 96 24 121/61 (81) 97 04/04/17 18:00 96 22 123/66 (85) 04/04/17 18:00 96 I/O 04/04/17 04/04/17 04/04/17 04/05/17 04/05/17 04/05/17 07:00 15:00 23:00 07:00 15:00 23:00 Intake Total 1050 ml 550 ml 2222 ml 1230 ml 500 ml Output Total 1000 ml 800 ml 1300 ml 0 ml Balance 1050 ml -450 ml 1422 ml -70 ml 500 ml Intake Oral 900 ml 480 ml 500 ml IV Total 1050 ml 550 ml 1322 ml 750 ml Output Urine Total 1000 ml 800 ml 1300 ml 0 ml # Voids 4 # Bowel Movements 1 0 0 Physical Exam NAD ANICTERIC FLAT JVD, NO CAROTID BRUIT ABD BENIGN EXTR WITH TRACE EDEMA Laboratory Laboratory Tests Test 04/04/17 18:29 04/05/17 05:55 Troponin I 0.86 NG/ML White Blood Count 10.5 TH/MM3 Red Blood Count 3.21 MIL/MM3 Hemoglobin 9.6 GM/DL Hematocrit 28.3 % Mean Corpuscular Volume 88.3 FL Mean Corpuscular Hemoglobin 30.0 PG Mean Corpuscular Hemoglobin Concent 33.9 % Red Cell Distribution Width 13.9 % Platelet Count 247 TH/MM3 Mean Platelet Volume 6.9 FL Prothrombin Time 23.4 SEC Prothromb Time International Ratio 2.3 RATIO Activated Partial Thromboplast Time 34.4 SEC Blood Urea Nitrogen 23 MG/DL Creatinine 1.00 MG/DL Random Glucose 102 MG/DL Total Protein 6.4 GM/DL Albumin 3.4 GM/DL Calcium Level 9.4 MG/DL Phosphorus Level 2.1 MG/DL Magnesium Level 1.9 MG/DL Alkaline Phosphatase 41 U/L Aspartate Amino Transf (AST/SGOT) 23 U/L Alanine Aminotransferase (ALT/SGPT) 29 U/L Total Bilirubin 0.9 MG/DL Direct Bilirubin 0.2 MG/DL Sodium Level 136 MEQ/L Potassium Level 4.7 MEQ/L Chloride Level 107 MEQ/L Carbon Dioxide Level 20.6 MEQ/L Anion Gap 8 MEQ/L Estimat Glomerular Filtration Rate 53 ML/MIN Lactic Acid Level 1.1 mmol/L Indirect Bilirubin 0.7 MG/DL Amylase Level 97 U/L Lipase 416 U/L Thyroid Stimulating Hormone 3rd Gen 0.332 uIU/ML Assessment and Plan Assessment and Plan ASHD, S/P CABG X3 20 YRS AGO. TROPONIN POSITIVE FOR ACS ATRIAL FIBRILLATION CRI UTI PLAN: HOLD WARFARIN CARDIAC CATH FRIDAY DR IGLESIAS METOPROLOL 25 MG BID NITROPASTE NOT ON LIZ AND STATIN 2/2 ALLERGY Kishan Myers MD Apr 05, 2017 17:37
[2017-04-05] MEDS: NITROGLYCERIN 2% OINT 1 GM PACKET TOPICAL SCH ×2 (17:58→22:22)
[2017-04-05] MEDS: METOPROLOL TARTRATE 25 MG TAB PO SCH (21:00)
[2017-04-05] MEDS: MONTELUKAST SODIUM 10 MG TAB PO SCH (21:00)
[2017-04-05] MEDS: ACETAMINOPHEN 325 MG TAB PO PRN (22:22)
[2017-04-06] VITALS (9 sets, daily range): BP systolic 93–132; BP diastolic 60–85; PULSE 75–98; RESP 16–20; TEMP 97.9–99.1; O2SAT 92–99
[2017-04-06] MEDS: CHLORHEXIDINE GLUCONATE 2 % 1 PACK (2 CLOTHS) TOP SCH (03:49)
[2017-04-06] MEDS: CEFEPIME INJ 1,000 MG in SODIUM CHLORIDE 0.9% INJ 100 ML IV SCH ×2 (03:49→14:35)
[2017-04-06 05:56] LABS: HEMATOCRIT 26.1 % (35.0-46.0); MEAN CELL VOLUME 90.5 FL (80.0-100.0); MEAN CORPUSCULAR HEMOGLOBIN 31.1 PG (27.0-34.0); MEAN CORPUSCULAR HGB CONC 34.3 % (32.0-36.0); PLATELET COUNT 226 TH/MM3 (150-450); RED BLOOD COUNT 2.88 MIL/MM3 (4.00-5.30); RED CELL DISTRIBUTION WIDTH 14.7 % (11.6-17.2); REVIEW FLAG FINAL; WHITE BLOOD COUNT 11.3 TH/MM3 (4.0-11.0)
[2017-04-06] MEDS: LEVOTHYROXINE SODIUM 50 MCG TAB PO SCH (05:56)
[2017-04-06] MEDS: NITROGLYCERIN 2% OINT 1 GM PACKET TOPICAL SCH ×3 (05:56→20:49)
[2017-04-06 06:11] LABS: APTT (PATIENT) 36.5 SEC (24.3-30.1); INTERNATIONAL NORMALIZED RATIO 1.5 RATIO; PROTHROMBIN TIME - PATIENT 15.6 SEC (9.8-11.6)
[2017-04-06 06:19] LABS: BICARBONATE 20.1 MEQ/L (21.0-32.0); POTASSIUM 4.7 MEQ/L (3.5-5.1)
[2017-04-06] MEDS: SODIUM CHLOR 0.9% 1000 ML INJ 1,000 ML IV SCH ×2 (06:45→14:32)
[2017-04-06] MEDS: ASPIRIN 81 MG CHEW TAB PO SCH (08:31)
[2017-04-06] MEDS: METOPROLOL TARTRATE 25 MG TAB PO SCH ×2 (08:31→20:49)
[2017-04-06] MEDS: CHOLECALCIFEROL (VIT D3) 1000 UNIT TAB PO SCH (08:31)
[2017-04-06] MEDS: DOCUSATE SODIUM 50 MG/SENNA 8.6 MG TAB PO SCH ×3 (08:31→20:49)
--- NOTE | 2017-04-06 13:09 | HHI.PR ---
Subjective Remarks Patient in the chair, appears in nad. Did not have any chest pain or sob. Sattign well on room air. Patient with LE edema. No n/v. Reports constipation. No abd pain .No lightheadedness, palpitations. No fever or chills , no cough. Objective Vitals Vital Signs Date Time Temp Pulse Resp B/P (MAP) Pulse Ox O2 Delivery O2 Flow Rate FiO2 04/06/17 11:02 75 04/06/17 11:01 98.2 97 18 93/60 (71) 93 04/06/17 07:24 96 21 04/06/17 07:09 95 Room Air 04/06/17 07:08 97.9 75 18 108/68 (81) 95 04/06/17 07:08 75 04/06/17 04:05 98.2 88 18 100/68 (79) 92 04/06/17 03:36 85 04/05/17 23:34 95 04/05/17 23:00 96 20 115/75 (88) 96 04/05/17 19:38 103 04/05/17 19:22 98.0 103 20 145/83 (103) 96 04/05/17 18:06 102 04/05/17 16:56 102 04/05/17 16:53 98.6 101 20 161/91 (114) 97 04/05/17 15:00 100 16 107/67 (80) 04/05/17 14:00 102 20 125/73 (90) 04/05/17 14:00 102 I/O 04/05/17 04/05/17 04/05/17 04/06/17 04/06/17 04/06/17 07:00 15:00 23:00 07:00 15:00 23:00 Intake Total 1230 ml 500 ml 340 ml Output Total 1300 ml 0 ml 900 ml Balance -70 ml 500 ml -560 ml Intake Oral 480 ml 500 ml 240 ml IV Total 750 ml 100 ml Output Urine Total 1300 ml 0 ml 900 ml # Bowel Movements 0 Result Diagram: 04/06/17 04104/06/17 0410 Imaging Last Impressions Chest X-Ray 04/04/17 0000 Signed Impressions: Service Date/Time: Tuesday, April 04, 2017 07:58 - CONCLUSION: No acute disease. No significant change has occurred. Rafael Nichols MD Objective Remarks GENERAL: 82 yo male, well nourished, well developed appears in nad. CARDIOVASCULAR: Regular rate and rhythm. RESPIRATORY: No accessory muscle use. Clear to auscultation. Breath sounds equal bilaterally. GASTROINTESTINAL: Abdomen soft, non-tender, nondistended. Hepatic and splenic margins not palpable. MUSCULOSKELETAL: Extremities without clubbing, cyanosis, or edema. No obvious deformities. NEUROLOGICAL: Awake and alert. No obvious cranial nerve deficits. Motor grossly within normal limits. Five out of 5 muscle strength in the arms and legs. Normal speech. PSYCHIATRIC: Appropriate mood and affect; insight and judgment normal. A/P Problem List: (1) Normocytic anemia ICD Code: D64.9 - Anemia, unspecified (2) Severe mitral stenosis by prior echocardiogram ICD Code: I05.0 - Rheumatic mitral stenosis (3) Hyponatremia ICD Code: E87.1 - Hypo-osmolality and hyponatremia (4) History of atrial flutter ICD Code: Z86.79 - Personal history of other diseases of the circulatory system (5) Chronic anticoagulation ICD Code: Z79.01 - [facility] (current) use of anticoagulants (6) Hypothyroidism ICD Code: E03.9 - Hypothyroidism, unspecified (7) Dyslipidemia ICD Code: E78.5 - Hyperlipidemia, unspecified (8) History of hypertension ICD Code: Z86.79 - Personal history of other diseases of the circulatory system (9) Hyperkalemia ICD Code: E87.5 - Hyperkalemia (10) Cardiomyopathy ICD Code: I42.9 - Cardiomyopathy, unspecified (11) Dehydration ICD Code: E86.0 - Dehydration Status: Acute (12) Dizziness ICD Code: R42 - Dizziness and giddiness Status: Acute (13) Elevated troponin ICD Code: R74.8 - Abnormal levels of other serum enzymes Status: Acute (14) RAMU (acute kidney injury) ICD Code: N17.9 - Acute kidney failure, unspecified Status: Acute Assessment and Plan Acute coronary syndrome, rule out non-ST elevation PA. Transfered from [facility] for cardiac catheterization. Cardiology Dr Neil clark, plan for cardiac cath on Friday04/07/17 Hypotension, improved after gentle IV hydration CHF exacerbation, mild and resolved Hyponatremia, secondary to CHF exacerbation, improved Abnormal TSH while on Synthroid, continue current management with outpatient follow-up? Euthyroid sick syndrome DVT ppx per surgeon Problem Qualifiers (1) Hypothyroidism: Qualified Codes: E03.9 - Hypothyroidism, unspecified (2) Cardiomyopathy: Qualified Codes: I42.9 - Cardiomyopathy, unspecified Jessica Barreto MD Apr 06, 2017 13:09
[2017-04-06] MEDS ORDERED: LACTULOSE SYRUP 20 GM/30 ML CUP PO PRN (14:00)
[2017-04-06] MEDS ORDERED: SENNOSIDES 8.6 MG TAB PO PRN (14:00)
[2017-04-06] MEDS ORDERED: TEMAZEPAM 15 MG CAP PO PRN (14:00)
[2017-04-06] MEDS ORDERED: NALOXONE HCL 0.4 MG/ML AMP IV PUSH PRN (14:00)
[2017-04-06] MEDS ORDERED: MAGNESIUM HYDROXIDE SUSP 30 ML CUP PO PRN (14:00)
[2017-04-06] MEDS ORDERED: BISACODYL 10 MG SUPP RECTAL PRN (14:00)
--- NOTE | 2017-04-06 14:32 | PD.CARD.PN ---
Subjective Subjective Remarks NO COMPLAINTS OF CHEST PAIN OR SOB TROPONIN POSITIVE FOR ACS Objective Medications Current Medications Medications (Trade) Dose Ordered Sig/Rona Route Start Time Stop Time Status Last Admin Sodium Chloride 1,000 ml @ 50 mls/hr Q20H IV 04/03/17 18:45 04/05/17 02:12 (Mag-Ox) 800 mg UNSCH PRN PO 04/03/17 19:00 Magnesium Sulfate 4 gm/Sodium Chloride 100 ml @ 50 mls/hr UNSCH PRN IV 04/03/17 19:00 Magnesium Sulfate 2 gm/Sodium Chloride 100 ml @ 50 mls/hr UNSCH PRN IV 04/03/17 19:00 Potassium Chloride 100 ml @ 50 mls/hr Q2H PRN IV 04/03/17 19:00 Potassium Chloride 100 ml @ 50 mls/hr Q2H PRN IV 04/03/17 19:00 Potassium Chloride 100 ml @ 50 mls/hr Q2H PRN IV 04/03/17 19:00 Potassium Chloride 100 ml @ 25 mls/hr UNSCH PRN IV 04/03/17 19:00 (K-Phos) 2,000 mg Q4H PRN PO 04/03/17 19:00 (K-Phos) 2,000 mg UNSCH PRN PO/TUBE 04/03/17 19:00 Potassium Phosphate 30 mmol/ Sodium Chloride 260 ml @ 42 mls/hr UNSCH PRN IV 04/03/17 19:00 Sodium Phosphate 30 mmol/Sodium Chloride 250 ml @ 42 mls/hr UNSCH PRN IV 04/03/17 19:00 (Tylenol) 650 mg Q6H PRN PO 04/03/17 19:00 04/05/17 22:22 (Zofran Inj) 4 mg Q6H PRN IV PUSH 04/03/17 19:00 Miscellaneous Information 1 Q361D XX 04/03/17 19:00 (Chlorhexidine 2% Cloth) 3 pack Taper DAILY@04 TOP 04/04/17 04:00 03/31/18 03:59 04/06/17 03:49 (Chlorhexidine 2% Cloth) 3 pack UNSCH PRN TOP 04/03/17 19:00 (Emelina-Colace) 1 tab BID PO 04/03/17 21:00 04/06/17 08:31 (Vitamin D3) 2,000 units DAILY PO 04/04/17 09:00 04/06/17 08:31 (Synthroid) 50 mcg DAILY@0600 PO 04/04/17 06:00 04/06/17 05:56 (Singulair) 10 mg HS PO 04/03/17 21:00 04/05/17 21:00 Cefepime HCl 1000 mg/Sodium Chloride 100 ml @ 200 mls/hr Q12H IV 04/04/17 15:00 04/06/17 03:49 (Aspirin Chew) 81 mg DAILY PO 04/05/17 09:00 04/06/17 08:31 (Lopressor) 25 mg Q12HR PO 04/05/17 21:00 04/06/17 08:31 (Nitroglycerin 2% Oint) 1 inch Q8HR TOPICAL 04/05/17 17:45 04/06/17 13:57 (Restoril) 7.5 mg HS PRN PO 04/06/17 14:00 (Narcan Inj) 0.4 mg UNSCH PRN IV PUSH 04/06/17 14:00 (Emelina-Colace) 1 tab BID PO 04/06/17 21:00 (Milk Of Magnesia Liq) 30 ml Q12H PRN PO 04/06/17 14:00 04/06/17 14:09 (Senokot) 17.2 mg Q12H PRN PO 04/06/17 14:00 (Dulcolax Supp) 10 mg DAILY PRN RECTAL 04/06/17 14:00 (Lactulose Liq) 30 ml DAILY PRN PO 04/06/17 14:00 Vital Signs / I&O Vital Signs Date Time Temp Pulse Resp B/P (MAP) Pulse Ox O2 Delivery O2 Flow Rate FiO2 04/06/17 11:02 75 04/06/17 11:01 98.2 97 18 93/60 (71) 93 04/06/17 07:24 96 21 04/06/17 07:09 95 Room Air 04/06/17 07:08 97.9 75 18 108/68 (81) 95 04/06/17 07:08 75 04/06/17 04:05 98.2 88 18 100/68 (79) 92 04/06/17 03:36 85 04/05/17 23:34 95 04/05/17 23:00 96 20 115/75 (88) 96 04/05/17 19:38 103 04/05/17 19:22 98.0 103 20 145/83 (103) 96 04/05/17 18:06 102 04/05/17 16:56 102 04/05/17 16:53 98.6 101 20 161/91 (114) 97 04/05/17 15:00 100 16 107/67 (80) I/O 04/05/17 04/05/17 04/05/17 04/06/17 04/06/17 04/06/17 07:00 15:00 23:00 07:00 15:00 23:00 Intake Total 1230 ml 500 ml 340 ml Output Total 1300 ml 0 ml 900 ml Balance -70 ml 500 ml -560 ml Intake Oral 480 ml 500 ml 240 ml IV Total 750 ml 100 ml Output Urine Total 1300 ml 0 ml 900 ml # Bowel Movements 0 Physical Exam NAD ANICTERIC FLAT JVD, NO CAROTID BRUIT ABD BENIGN EXTR WITH TRACE EDEMA Laboratory Laboratory Tests Test 04/06/17 04:10 White Blood Count 11.3 TH/MM3 Red Blood Count 2.88 MIL/MM3 Hemoglobin 9.0 GM/DL Hematocrit 26.1 % Mean Corpuscular Volume 90.5 FL Mean Corpuscular Hemoglobin 31.1 PG Mean Corpuscular Hemoglobin Concent 34.3 % Red Cell Distribution Width 14.7 % Platelet Count 226 TH/MM3 Mean Platelet Volume 7.5 FL Prothrombin Time 15.6 SEC Prothromb Time International Ratio 1.5 RATIO Activated Partial Thromboplast Time 36.5 SEC Blood Urea Nitrogen 20 MG/DL Creatinine 1.01 MG/DL Random Glucose 110 MG/DL Calcium Level 9.5 MG/DL Sodium Level 135 MEQ/L Potassium Level 4.7 MEQ/L Chloride Level 105 MEQ/L Carbon Dioxide Level 20.1 MEQ/L Anion Gap 10 MEQ/L Estimat Glomerular Filtration Rate 53 ML/MIN Assessment and Plan Assessment and Plan ASHD, S/P CABG X3 20 YRS AGO. TROPONIN POSITIVE FOR ACS ATRIAL FIBRILLATION CRI UTI PLAN: HOLD WARFARIN CARDIAC CATH FRIDAY DR IGLESIAS METOPROLOL 25 MG BID NITROPASTE NOT ON LIZ AND STATIN 2/2 ALLERGY 04/06: MEDICATIONS REVIEWED, CONTINUE SAME CARDIAC CATH 04/07 NPO AFTER Kishan Fritz MD Apr 06, 2017 14:32
[2017-04-06] MEDS: MONTELUKAST SODIUM 10 MG TAB PO SCH (20:49)
--- NOTE | 2017-04-06 22:10 | PD.PROCEDR ---
Procedure Note Procedure Date: 04/06/17 Procedure: Cardiopulmonary resucitation Indication: Bradycardia/asystole cardiac arrest Details of procedure: I responded to CODE BLUE called overhead. Nurse states patient had requested to ambulate halls. She ambulated without symptoms and then sat down and started to feel lightheaded. She was placed in bed and placed on the monitor where she was noted to be bradycardic. Slow A fib on telemetry and then pause. She became unresponsive without palpable pulse so atropine 1 mg IV was administered with couple of chest compressions and she became responsive. She denies CP/SOB/N /V. She is alert, on NC and normotensive. Stat EKG and labs were ordered. Junctional rhythm, Minimal ST depression inferiorly with T wave inversion,. No ST elevation. Cardiac cath in am per Neil. Had severe mitral stenosis on Echo 01/05 and cardiology to provide recommendation regarding valve surgery. Agueda Fofana MD Apr 06, 2017 22:10
--- NOTE | 2017-04-06 22:48 | RADRPT ---
EXAM DATE/TIME: 04/06/2017 22:09 [place] COMPARISON: CHEST SINGLE AP, April 04, 2017, 7:58. INDICATIONS : Shortness of breath. MEDICAL HISTORY : Myocardial infarction. Hypercholesterolemia. Hypertension. CAD A-fib Asthma SURGICAL HISTORY : Hysterectomy. Mitral valve repair Cardiac ablation ENCOUNTER: Subsequent ACUITY: 3 days PAIN SCORE: 3/10 LOCATION: Bilateral chest FINDINGS: The patient is status post sternotomy. The heart size is borderline enlarged. There is persistent crys vation of the right hemidiaphragm. The lungs are grossly clear. CONCLUSION: Borderline cardiomegaly. Ismael Cordon MD on April 06, 2017 at 22:44 Board Certified Radiologist. This report was verified electronically.
[2017-04-06 23:09] LABS: BICARBONATE 22.8 MEQ/L (21.0-32.0); MAGNESIUM 1.9 MG/DL (1.5-2.5); POTASSIUM 4.7 MEQ/L (3.5-5.1)
[2017-04-06] MEDS: ACETAMINOPHEN 325 MG TAB PO PRN (23:49)
[2017-04-07] VITALS (9 sets, daily range): BP systolic 102–126; BP diastolic 58–79; PULSE 66–104; RESP 16–20; TEMP 97.3–98.4; O2SAT 93–99
[2017-04-07] MEDS: SODIUM CHLOR 0.9% 1000 ML INJ 1,000 ML IV SCH ×4 (00:32→22:45)
[2017-04-07] MEDS ORDERED: MAGNESIUM SULFATE 1 GM PREMIX 100 ML IV ONE (01:00)
[2017-04-07 03:55] LABS: AUTOMATED NEUTROPHIL # 8.5 TH/MM3 (1.8-7.7); BASOPHIL % 0.3 % (0.0-2.0); EOSINOPHIL # 0.1 TH/MM3 (0-0.4); EOSINOPHIL % 0.8 % (0.0-4.0); HEMATOCRIT 24.6 % (35.0-46.0); HEMO FLAGS DIFF FINAL; LYMPH % 9.9 % (9.0-44.0); MEAN CELL VOLUME 89.9 FL (80.0-100.0); MEAN CORPUSCULAR HEMOGLOBIN 31.6 PG (27.0-34.0); MEAN CORPUSCULAR HGB CONC 35.2 % (32.0-36.0); MONO % 5.9 % (0.0-8.0); NEUT % 83.1 % (16.0-70.0); PLATELET COUNT 201 TH/MM3 (150-450); RED BLOOD COUNT 2.74 MIL/MM3 (4.00-5.30); RED CELL DISTRIBUTION WIDTH 14.7 % (11.6-17.2); WHITE BLOOD COUNT 10.2 TH/MM3 (4.0-11.0)
[2017-04-07] MEDS: CHLORHEXIDINE GLUCONATE 2 % 1 PACK (2 CLOTHS) TOP SCH (04:00)
[2017-04-07] MEDS: CEFEPIME INJ 1,000 MG in SODIUM CHLORIDE 0.9% INJ 100 ML IV SCH ×2 (04:01→15:00)
[2017-04-07 04:09] LABS: APTT (PATIENT) 28.2 SEC (24.3-30.1); INTERNATIONAL NORMALIZED RATIO 1.2 RATIO; PROTHROMBIN TIME - PATIENT 11.8 SEC (9.8-11.6)
[2017-04-07 04:15] LABS: BICARBONATE 23.4 MEQ/L (21.0-32.0); POTASSIUM 4.9 MEQ/L (3.5-5.1)
[2017-04-07] MEDS ORDERED: DOPamine INJ PREMIX 500 ML IV ONE (05:00)
[2017-04-07] MEDS: NITROGLYCERIN 2% OINT 1 GM PACKET TOPICAL SCH ×3 (06:00→21:27)
[2017-04-07] MEDS: ACETAMINOPHEN 325 MG TAB PO PRN ×2 (07:18→23:01)
[2017-04-07] MEDS: ASPIRIN 81 MG CHEW TAB PO SCH (08:32)
[2017-04-07] MEDS: CHOLECALCIFEROL (VIT D3) 1000 UNIT TAB PO SCH (09:00)
[2017-04-07] MEDS: DOCUSATE SODIUM 50 MG/SENNA 8.6 MG TAB PO SCH ×4 (09:00→21:26)
--- NOTE | 2017-04-07 09:02 | HHI.PR ---
Subjective Remarks The pt said that she passed out last night. She is not sure how long she was out for. She said she was feeling fine and ambulating before the incident. 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 Currently feeling well and awaiting cardiac cath. Objective Vitals Vital Signs Date Time Temp Pulse Resp B/P (MAP) Pulse Ox O2 Delivery O2 Flow Rate FiO2 04/07/17 08:02 98 Nasal Cannula 2.00 04/07/17 07:55 98.4 66 16 120/76 (91) 98 04/07/17 07:51 98 Nasal Cannula 2.00 04/07/17 07:00 66 04/07/17 03:00 80 04/07/17 03:00 98.2 93 16 114/71 (85) 98 04/06/17 23:00 97 04/06/17 23:00 98.4 97 18 123/85 (98) 99 04/06/17 22:30 99 Nasal Cannula 2.00 04/06/17 22:00 99 Nasal Cannula 4.00 04/06/17 21:41 99 Ambu Bag 100 04/06/17 19:00 99.1 97 20 132/79 (96) 94 04/06/17 19:00 98 04/06/17 19:00 94 Room Air 04/06/17 15:02 98.7 96 16 123/79 (94) 94 04/06/17 15:02 96 04/06/17 11:02 75 04/06/17 11:01 98.2 97 18 93/60 (71) 93 I/O 04/06/17 04/06/17 04/06/17 04/07/17 04/07/17 04/07/17 07:00 15:00 23:00 07:00 15:00 23:00 Intake Total 340 ml 1300 ml 1130 ml Output Total 900 ml 600 ml 450 ml Balance -560 ml 700 ml 680 ml Intake Oral 240 ml 1200 ml 480 ml IV Total 100 ml 100 ml 650 ml Output Urine Total 900 ml 600 ml 450 ml # Voids 2 # Bowel Movements 1 1 Result Diagram: 04/07/17 0329 04/07/17 0329 Imaging Last Impressions Chest X-Ray 04/06/17 0000 Signed Impressions: Service Date/Time: Thursday, April 06, 2017 22:09 - CONCLUSION: Borderline cardiomegaly. Ismael Cordon MD Objective Remarks GENERAL: Resting comfortably. HEENT: NC, AT. CARDIOVASCULAR: Regular rate and rhythm. RESPIRATORY: No accessory muscle use. Clear to auscultation. Breath sounds equal bilaterally. GASTROINTESTINAL: Abdomen soft, non-tender, nondistended. Hepatic and splenic margins not palpable. MUSCULOSKELETAL: TR LE edema. NEUROLOGICAL: Awake and alert. No obvious cranial nerve deficits. Motor grossly within normal limits. Five out of 5 muscle strength in the arms and legs. Normal speech. PSYCHIATRIC: Appropriate mood and affect; insight and judgment normal. Medications and IVs Current Medications Medications (Trade) Dose Ordered Sig/Rona Route Start Time Stop Time Status Last Admin Sodium Chloride 1,000 ml @ 50 mls/hr Q20H IV 04/03/17 18:45 04/05/17 02:12 (Mag-Ox) 800 mg UNSCH PRN PO 04/03/17 19:00 Magnesium Sulfate 4 gm/Sodium Chloride 100 ml @ 50 mls/hr UNSCH PRN IV 04/03/17 19:00 Magnesium Sulfate 2 gm/Sodium Chloride 100 ml @ 50 mls/hr UNSCH PRN IV 04/03/17 19:00 Potassium Chloride 100 ml @ 50 mls/hr Q2H PRN IV 04/03/17 19:00 Potassium Chloride 100 ml @ 50 mls/hr Q2H PRN IV 04/03/17 19:00 Potassium Chloride 100 ml @ 50 mls/hr Q2H PRN IV 04/03/17 19:00 Potassium Chloride 100 ml @ 25 mls/hr UNSCH PRN IV 04/03/17 19:00 (K-Phos) 2,000 mg Q4H PRN PO 04/03/17 19:00 (K-Phos) 2,000 mg UNSCH PRN PO/TUBE 04/03/17 19:00 Potassium Phosphate 30 mmol/ Sodium Chloride 260 ml @ 42 mls/hr UNSCH PRN IV 04/03/17 19:00 Sodium Phosphate 30 mmol/Sodium Chloride 250 ml @ 42 mls/hr UNSCH PRN IV 04/03/17 19:00 (Tylenol) 650 mg Q6H PRN PO 04/03/17 19:00 04/07/17 07:18 (Zofran Inj) 4 mg Q6H PRN IV PUSH 04/03/17 19:00 Miscellaneous Information 1 Q361D XX 04/03/17 19:00 (Chlorhexidine 2% Cloth) 3 pack Taper DAILY@04 TOP 04/04/17 04:00 03/31/18 03:59 04/07/17 04:00 (Chlorhexidine 2% Cloth) 3 pack UNSCH PRN TOP 04/03/17 19:00 (Emelina-Colace) 1 tab BID PO 04/03/17 21:00 04/06/17 08:31 (Vitamin D3) 2,000 units DAILY PO 04/04/17 09:00 04/06/17 08:31 (Synthroid) 50 mcg DAILY@0600 PO 04/04/17 06:00 Future Hold 04/06/17 05:56 (Singulair) 10 mg HS PO 04/03/17 21:00 04/06/17 20:49 Cefepime HCl 1000 mg/Sodium Chloride 100 ml @ 200 mls/hr Q12H IV 04/04/17 15:00 04/07/17 04:01 (Aspirin Chew) 81 mg DAILY PO 04/05/17 09:00 04/07/17 08:32 (Lopressor) 25 mg Q12HR PO 04/05/17 21:00 Future Hold 04/06/17 20:49 (Nitroglycerin 2% Oint) 1 inch Q8HR TOPICAL 04/05/17 17:45 04/07/17 06:00 (Restoril) 7.5 mg HS PRN PO 04/06/17 14:00 (Narcan Inj) 0.4 mg UNSCH PRN IV PUSH 04/06/17 14:00 (Emelina-Colace) 1 tab BID PO 04/06/17 21:00 (Milk Of Magnesia Liq) 30 ml Q12H PRN PO 04/06/17 14:00 04/06/17 14:09 (Senokot) 17.2 mg Q12H PRN PO 04/06/17 14:00 (Dulcolax Supp) 10 mg DAILY PRN RECTAL 04/06/17 14:00 (Lactulose Liq) 30 ml DAILY PRN PO 04/06/17 14:00 Sodium Chloride 1,000 ml @ 100 mls/hr Q10H IV 04/06/17 14:32 04/11/17 14:31 A/P Problem List: (1) Normocytic anemia ICD Code: D64.9 - Anemia, unspecified (2) Severe mitral stenosis by prior echocardiogram ICD Code: I05.0 - Rheumatic mitral stenosis (3) Hyponatremia ICD Code: E87.1 - Hypo-osmolality and hyponatremia (4) History of atrial flutter ICD Code: Z86.79 - Personal history of other diseases of the circulatory system (5) Chronic anticoagulation ICD 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 (6) Hypothyroidism ICD Code: E03.9 - Hypothyroidism, unspecified (7) Dyslipidemia ICD Code: E78.5 - Hyperlipidemia, unspecified (8) History of hypertension ICD Code: Z86.79 - Personal history of other diseases of the circulatory system (9) Hyperkalemia ICD Code: E87.5 - Hyperkalemia (10) Cardiomyopathy ICD Code: I42.9 - Cardiomyopathy, unspecified (11) Dehydration ICD Code: E86.0 - Dehydration Status: Acute (12) Dizziness ICD Code: R42 - Dizziness and giddiness Status: Acute (13) Elevated troponin ICD Code: R74.8 - Abnormal levels of other serum enzymes Status: Acute (14) RAMU (acute kidney injury) ICD Code: N17.9 - Acute kidney failure, unspecified Status: Acute Assessment and Plan NSTEMI/ Acute on chronic CHF/ Afib Transfered from [facility] for cardiac catheterization as the pt's trops peaked at 1. The pt has coronary artery disease status post CABG 3 with mitral valve repair in 1996. Severe mitral stenosis and EF 57% by RAMILA 01/05. She was initially hypotensive. Slow A fib noted on telemetry 04/06 and then pause. She became unresponsive without palpable pulse so atropine 1 mg IV was administered with couple of chest compressions and she became responsive. EKG with junctional rhythm, minimal ST depression inferiorly with T wave inversion, no ST elevation. BNP was markedly elevated. - Currently holding Dronedarone 400 mg by mouth twice a day, valsartan 320 mg by mouth daily, spironolactone 25 mg twice a day. Patient's been off torsemide 20 mg every other day for several weeks. - Dr. Trejo planning on cath 04/07. - Holding anticoagulation per cardiology request. Hypotension Improved after IVFs. - hold antihypertensive meds. - IVFs. Abnormal TSH while on Synthroid TSH was noted to be low. - check free T4, T3 levels. - continue current management with outpatient follow-up. Anemia Hgb is lower than baseline. - check iron studies, b12 and folate levels. - check Hemoccult. Renal insufficiency Improved with hydration. - continue IVFs and avoid nephrotoxins. DVT ppx per cardiology Discharge Planning Awaiting cath Problem Qualifiers (1) Hypothyroidism: Qualified Codes: E03.9 - Hypothyroidism, unspecified (2) Cardiomyopathy: Qualified Codes: I42.9 - Cardiomyopathy, unspecified Seymour Tamayo DO Apr 07, 2017 09:02
[2017-04-07] MEDS ORDERED: MIDAZOLAM HCL 2 MG/2 ML VIAL ONE (09:10)
[2017-04-07] MEDS ORDERED: HEPARIN-NS/PF INJ 1,000 ML ONE (09:10)
[2017-04-07] MEDS ORDERED: FUROSEMIDE 40 MG/4 ML VIAL ONE (10:34)
--- NOTE | 2017-04-07 10:47 | CATHPROC ---
[employer] HIS Report Study Information Study Number Admission Scheduled Start Study Start [id number] Apr 03 2017 7:15PM 04/06/2017 Apr 07 2017 9:06AM [place] [facility] Cardiac Catheterization Admit Source Facility Department Emergency department [facility] - [facility] Physician and Clinical Staff Initial Kayla Hancock [facility] Heater Shavon Rogers,ABHILASH Rivet Heater Mitul Singh,ABHILASH Recorder Hanny Pearce,RT(R) (BS) Scrub Janet GuerraRT(R) Procedures Performed Procedure Location (Site) Vessel Name Angiogram LV LV Ventricle Coronary Angiograms LCA Left Coronary Coronary Angiograms RCA Right Coronary Coronary Angiograms CHANG-LAD Left Coronary Coronary Angiograms SVG-OM CIRC Wire insertion Fem Art (right) Femoral Art Equipment Time Proposal Development Manager Description Size Mfg Part Number Used/Scraped [id number] 09:58 MUNOZ CABRAL SWAN TERRA CATHETER FR 7 Used *[id number] TRANSDUCER, TRUWAVE [id number] 09:19 MUNOZ CABRAL * Used W/STOCKCOCK *[id number] INTRODUCER SET, 09:19 [employer] FR 5 [id number] *[id number] Used MICROPUNCTURE, STIFFENED [phone] *[id number] 538-460 *[id number] 538-420 *[id number] 538-442 *[id number] 538-453S *[id number] 09:19 [employer] PACK, CCL CUSTOM * Used *[id number] 09:19 Glad [employer] You PACER PEN, SKIN DUAL W/ RULER * Used *[id number] 09:19 [employer] MEDICAL WIRE, 3MMJ .035 180CM 180CM Used *[id number] PROBE COVER, STERILE [id number] 09:19 [employer] MEDICAL * Used ULTRASOUND W/ GEL *[id number] PROBE COVER, STERILE [id number] 10:01 [employer] MEDICAL * Used ULTRASOUND W/ GEL *[id number] PROBE COVER, STERILE [id number] 10:01 [employer] MEDICAL * Used ULTRASOUND W/ GEL *[id number] 09:58 NAMIC MANIFOLD, 2 PORT * Used *[id number] 09:19 NAMIC MANIFOLD, 4 PORT * Used *[id number] 09:19 [employer] OMNIPAQUE, 350 MG, 150ML 150ML [id number] Used [id number] 09:19 [facility] BLANKET,WARM AIR CCL * Used *[id number] 09:19 [employer] MEDICAL SHEATH, FR4 TERUMO (10CM) FR 4 Used *[id number] 09:58 [employer] MEDICAL SHEATH, FR7 TERUMO (10CM) FR 7 Used *[id number] History: Current Medications Medication Dosage/Unit Route Frequency Last Date/Time Taken Beta Zach ASA Coumadin NTG Patch History: Allergies Allergy Reaction No Known Allergies lisinopril albuterol amlodipine atorvastatin colesevelam rosuvastatin dabigatran etexilate choline fenofibrate pitavastatin History: Risk Factors Family History of Hypertension Dyslipidemia Previous KS Previous Heart Failure Premature CAD Yes Yes Yes Yes No Prior Valve Prior PCI Prior CABG Prior CABGDate Surgery Yes No Yes 03/21/1997 Cerebrovascular Peripheral Artery Chronic Lung On Dialysis Diabetes Disease Disease Disease No No Yes No No History: Symptoms/Diagnosis Selection Items Syncope History: Stress Tests Stress or Imaging Studies Performed No History: Other Current Smoker No Labs Hgb (g/dl) Hct (%) WBC (l/cumm) Platelets (thousands) 11.60-17.00 35.00-51.00 4.00-11.00 150.00-450.00 8.7 24.6 10.2 201 Glucose (mg/dl) BUN (mg/dl) Creatinine (mg/dl) BUN:Creatinine (1:x) 74.00-106.00 7.00-18.00 0.50-1.30 10.00-20.00 105 22 0.9 24.4 Na (meq/l) K (meq/l) 136.00-145.00 3.50-5.10 134 4.9 INR (PTT:PT) 0.90-1.10 1.2 CPK-MB (ng/ML) 0.50-3.60 Not Drawn Medication Medication Total Dose (Bolus/Oral) Medication Total Dosage/Unit 1% XYLOCAINE 40 mL LASIX 40 mg VERSED 1 mg Medications (Bolus/Oral) Medication Time Given Dosage/Unit Administered By Reason VERSED 04/07/2017 9:31:19 AM 1 mg Mitul Singh 1 mg VERSED given in lab by Mitul Singh RN in Left Antecubital via Peripheral IV. 1% XYLOCAINE 04/07/2017 9:31:29 AM 20 mL Jamidar, Humayun 20 mL 1% XYLOCAINE given in lab by José Luis Trejoayun in Right Groin via Subcutaneous. 1% XYLOCAINE 04/07/2017 9:58:23 AM 20 mL Jamidar, Humayun 20 mL 1% XYLOCAINE given in lab by José Luis Trejoayun in Right Groin via Subcutaneous. 04/07/2017 10:32:53 LASIX 40 mg Mitul Singh AM 40 mg LASIX given in lab by Mitul Singh, RN in Left Antecubital via Peripheral IV. Medication (Drip) Medication Time Given Dosage/Unit Concentration/Unit Diluent (ml) Soluti on IV Solutions 04/07/2017 9:06:59 AM 0 mL (IV) 1000 NaCl .9 IV Solutions given in lab by Shavon Rogers RN in Left Antecubital via Peripheral IV. Pump/Drip Melecio w = 20 ml/hr using NaCl .9. Initial Case Assessment Cardiovascular HR Rhythm NIBP Chest Pain 92 reg 134/83 0 Edema Present Skin color Skin None Normal Warm Dry Circulatory - Right Pulses Dorsalis Pedis Femoral 1 1 Scale (0,1,2,3,4,d) Circulatory - Left Pulses Dorsalis Pedis Femoral 1 1 Scale (0,1,2,3,4,d) Circulatory - Lower Extremities Color Lower Right Color Lower Left Normal Normal Neurological State Oriented to time-place- Alert Moves all extremities person Respiration - General Respiration Rate (B/min) 20 Chronological Log Time Study Chronological Log 8:59:15 Patient arrived via Bed. 8:59:21 Patient Name, D.O.B, / Armband Verified By R.N. 9:00:46 Disposable Defibrillator Pads Placed On Patient. Vitals capture started with the following parameters, Patient=Adult, Interval=5 min, Initial Pr nalseo=148 mmHg, 9:05:33 Deflation Rate=5 mmHg, Cuff placed on Left Arm 9:06:26 Consent signed by the physician and the patient and verified by the [facility] staff. 9:06:30 Pre-op and post- op instructions given; patient acknowledges understanding of instructions. 9:06:32 Verbal Stimulation=2 Physical Stimulation=2 Airway=2 Respiration=2 TOTAL=8. (0=absent, 1=li mited, 2=present) 9:06:40 Patient has been NPO for More than 6Hrs. 9:06:42 Skin Breakdown none per pt 9:06:57 Cherise Prominences Protected 9:06:58 A # 20 IV was noted in the Antecubital (left). Grade = 0 IV Solutions given in lab by Shavon Rogers, RN in Left Antecubital via Peripheral IV. Pump/Dr ip Flow = 20 ml/hr using 9:06:59 NaCl .9. 9:06:59 History and physical on the chart or being dictated. Assessment: Initial Case, HR=92 BPM, Rhythm=reg, KGOQ=062/83 mmhg, Chest Pain=0, Edema=None, Col or=Normal, Skin = Warm, Dry Right Pulses: Ken Ped=1, Femoral=1 Left Pulses: Ken Ped=1, Femoral=1 9:07:00 Lower Right Extremities: Color=Normal Lower Left Extremities: Color=Normal Neurological: State=Alert, Ox3, WADE Respiration: Resp=20 B/min 9:07:03 JUUE=155/83 mmhg, Pain=0, Giovanni=10, Abdullahi=2 9:10:59 QT=117 bpm, MEKL=082/91 mmhg, SpO2=92.0 %, Resp=19 B/min, Pain=0, Giovanni=10, Abdullahi=2 9:15:57 Bilateral groins prepped with 2% chlorhexidine, and draped after a 3 minute waiting time. 9:16:12 HR=80 bpm, CUMW=457/70 mmhg, SpO2=91.0 %, Resp=26 B/min, Pain=0, Giovanni=10, Abdullahi=2 9:21:11 HR=90 bpm, BSQB=522/73 mmhg, SpO2=90.0 %, Resp=27 B/min, Pain=0, Giovanni=10, Abdullahi=2 9:23:33 MD paged 9:24:58 Reference ECG taken 9:25:22 Pressure channel 1 zeroed. 9:26:12 HR=77 bpm, STAE=988/66 mmhg, SpO2=96 %, Resp=29 B/min, Pain=0, Giovanni=10, Abdullahi=2 9:27:07 MD arrived Time Out. Correct patient, correct procedure, correct physician, power injector loaded with cont rast with surgical team 9:30:40 present. Time Out Concurred by MD and individual staff in procedure. 9:30:58 Case Start 9:31:13 HR=71 bpm, KQPX=914/65 mmhg, SpO2=97.0 %, Resp=20 B/min, Pain=0, Giovanni=10, Abdullahi=2 9:31:19 1 mg VERSED given in lab by Mitul Singh RN in Left Antecubital via Peripheral IV. 9:31:29 20 mL 1% XYLOCAINE given in lab by Kayla Trejo in Right Groin via Subcutaneous. 9:32:38 Access site was Right Femoral Artery using ultrasound A INTRODUCER SET, MICROPUNCTURE, STIFFENED FR 5 was advanced into the Fem Art (right) using the 9:33:02 Percutaneous technique. A SHEATH, FR4 TERUMO (10CM) FR 4 was exchanged in the Fem Art (right). This was necessary in ord er to 9:33:07 accomodate a larger catheter. A JL 4.0 INFINITI CATHETER FR 4 was advanced over a wire. OMNIPAQUE, 350 MG, 150ML 150ML was use d for 9:33:52 injections. Recorded Pressure: Ao, HR=87, Condition=Condition 1 9:35:13 (Aorta) Ao 112/65/87 9:35:41 The LCA was injected and visualized at various angles. OMNIPAQUE, 350 MG, 150ML 150ML used. 9:36:14 HR=80 bpm, CJQN=736/63 mmhg, SpO2=94.0 %, Resp=18 B/min, Pain=0, Giovanni=10, Abdullahi=2 9:37:02 Catheter was removed A 3DRC INFINITI CATHETER FR 4 was advanced over a wire. OMNIPAQUE, 350 MG, 150ML 150ML was used for 9:37:07 injections. 9:38:45 The RCA was injected and visualized at various angles. OMNIPAQUE, 350 MG, 150ML 150ML used. 9:41:15 HR=69 bpm, BYKH=295/56 mmhg, SpO2=97.0 %, Resp=14 B/min, Pain=0, Giovanni=10, Abdullahi=2 9:42:00 Catheter was removed A MPA-2 INFINITI CATHETER FR 4 was advanced over a wire. OMNIPAQUE, 350 MG, 150ML 150ML was used for 9:42:16 injections. 9:44:00 The SVG-OM was injected and visualized at various angles. OMNIPAQUE, 350 MG, 150ML 150ML use d. 9:46:12 HR=79 bpm, NIBP=99/61 mmhg, SpO2=97.0 %, Resp=17 B/min, Pain=0, Giovanni=10, Abdullahi=2 9:46:26 Catheter was removed 9:46:53 A IM INFINITI CATHETER FR 4 was advanced over a wire. OMNIPAQUE, 350 MG, 150ML 150ML was use d for injections. 9:49:52 A WIRE, 3MMJ .035 180CM 180CM was inserted via Fem Art (right). 9:51:13 HR=69 bpm, NIBP=98/55 mmhg, SpO2=95.0 %, Resp=14 B/min, Pain=0, Giovanni=10, Abdullahi=2 9:51:40 Wire removed 9:53:52 The CHANG-LAD was injected and visualized at various angles. OMNIPAQUE, 350 MG, 150ML 150ML u sed. 9:54:37 Catheter was removed 9:56:12 HR=79 bpm, TIYS=599/62 mmhg, SpO2=96.0 %, Resp=15 B/min, Pain=0, Giovanni=10, Abdullahi=2 9:58:23 20 mL 1% XYLOCAINE given in lab by Kayla Trejo in Right Groin via Subcutaneous. 10:01:13 HR=80 bpm, CBWS=182/66 mmhg, SpO2=96.0 %, Resp=17 B/min, Pain=0, Giovanni=10, Abdullahi=2 10:03:55 Access site was Right Femoral Vein using ultrasound A INTRODUCER SET, MICROPUNCTURE, STIFFENED FR 5 was advanced into the Fem Vein (right) using th e 10:04:08 Percutaneous technique. A SHEATH, FR7 TERUMO (10CM) FR 7 was exchanged in the Fem Art (right). This was necessary in or cachorro to 10:04:20 accomodate a larger catheter. 10:04:45 Pressure channel 2 zeroed. 10:06:07 A SWAN TERRA CATHETER FR 7 was inserted via Fem Vein (right) 10:06:12 HR=73 bpm, VXIS=894/66 mmhg, SpO2=95.0 %, Resp=16 B/min, Pain=0, Giovanni=10, Abdullahi=2 A PIGTAIL ANG. INFINITI CATHETER FR 4 was advanced over a wire. OMNIPAQUE, 350 MG, 150ML 150ML was used 10:10:43 for injections. 10:11:13 HR=72 bpm, UNAO=657/58 mmhg, SpO2=96.0 %, Resp=29 B/min, Pain=0, Giovanni=10, Abdullahi=2 Recorded Pressure: LV, PCW, HR=66, Condition=Condition 1 10:12:23 (Left Ventricle) LV 105/6/13, (Pulmonary Capillary Wedge) PCW 29/31/25 Recorded Pressure: LV, PCW, HR=82, Condition=Condition 1 10:13:24 (Left Ventricle) LV 109/6/11, (Pulmonary Capillary Wedge) PCW 30/29/25 10:15:04 The LV was injected at 8 cc/sec for a total of 32. OMNIPAQUE, 350 MG, 150ML 150ML used. Recorded Pressure: LV, Ao, HR=90, Condition=Condition 1 10:16:05 (Left Ventricle) LV 84/6/10, (Aorta) Ao 86/56/71 10:16:13 HR=92 bpm, NIBP=92/64 mmhg, SpO2=95.0 %, Resp=24 B/min, Pain=0, Giovanni=10, Abdullahi=2 10:16:23 Catheter was removed pig Recorded Pressure: MPA, HR=82, Condition=Condition 1 10:17:04 (Main Pulmonary Artery) MPA 47/21/32 Thermo CO: CO=3.2 l/m, HR=86 bpm, Condition=Condition 1. Used in calculation. 10:18:34 Equipment: Description and Size=SWAN TERRA CATHETER FR 7, Type=Bath Probe, CC=0.579 Injectant: Temp=19.0 - 22.0 Celsius, Volume=10.0 ml Thermo CO: CO=3.5 l/m, HR=87 bpm, Condition=Condition 1. Used in calculation. 10:19:05 Equipment: Description and Size=SWAN TERRA CATHETER FR 7, Type=Bath Probe, CC=0.579 Injectant: Temp=19.0 - 22.0 Celsius, Volume=10.0 ml Thermo CO: CO=3.2 l/m, HR=88 bpm, Condition=Condition 1. Used in calculation. 10:19:44 Equipment: Description and Size=SWAN TERRA CATHETER FR 7, Type=Bath Probe, CC=0.579 Injectant: Temp=19.0 - 22.0 Celsius, Volume=10.0 ml 10:21:12 HR=86 bpm, TPVL=966/65 mmhg, SpO2=95.0 %, Resp=20 B/min, Pain=0, Giovanni=10, Abdullahi=2 10:22:56 Saturation: Site=FA (Femoral Artery) , O2=96 %, Hgb=8.7 gm/dl, Condition=Condition 1. Used in calculation. Recorded Pressure: RV, HR=75, Condition=Condition 1 10:24:05 (Right Ventricle) RV 47/5/12 10:24:11 Saturation: Site=PA (Pulmonary Artery) , O2=56.8 %, Hgb=8.2 gm/dl, Condition=Condition 1. U sed in calculation. Recorded Pressure: RA, HR=87, Condition=Condition 1 10:24:34 (Right Atrium) RA /14 10:25:12 Saturation: Site=RA (Right Atrium) , O2=57.2 %, Hgb=8.7 gm/dl, Condition=Condition 1. Used in calculation. 10:26:16 [place] Terra Catheter Removed 10:26:17 HR=84 bpm, JPPO=923/67 mmhg, SpO2=96.0 %, Resp=28 B/min, Pain=0, Giovanni=10, Abdullahi=2 10:26:22 Case End 10:27:18 Catheter(s) removed without difficulty 10:27:30 No case complications noted. 10:27:34 Bedside Report will be given. 10:27:39 A Left and Right Heart Cath was performed. 10:30:38 Sterile dressing applied to site 10:31:14 HR=84 bpm, ITHZ=524/71 mmhg, SpO2=98.0 %, Resp=20 B/min, Pain=0, Giovanni=10, Abdullahi=2 10:32:53 40 mg LASIX given in lab by Mitul Singh, RN in Left Antecubital via Peripheral IV. 10:36:19 Vitals capture stopped. End Study - Contrast Media Used In Study Contrast Total Opened (mL) Total Used (mL) Total Wasted (mL) Omnipaque 120 120 0 End Study - Maximum Contrast Load Max Contrast Load (mL) 433.8 End Study - Radiation Exposure Fluoro Time (minutes) 13.1 End Study - Patient Disposition Complications Transferred To Interventional Outcome No Critical Care Bed No attempt made
--- NOTE | 2017-04-07 11:22 | MA ---
cc: KAYLA TREJO M.D., JOANNE D. M.D. CARY MEYERS MD DATE 04/07/2017 PROCEDURE PERFORMED Right and left heart catheterization. Sedation. INDICATIONS 1. Cardiac arrest. 2. Non-STEMI. 3. Severe mitral stenosis. 4. History of 20-year-old bypass grafts. CONSENT A full, informed consent was obtained prior to the procedure. The risks of , bleeding, myocardial infarction, perforation, aspiration, foreseen and unforeseen complications were reviewed. The patient fully appeared to understand the risks. PROCEDURAL STATEMENTS Sedation given The patient was draped and prepped in the usual manner. The right femoral artery and vein were entered using a micropuncture technique with ultrasound. Via the arterial sheath a full left heart catheterization was performed. Via the venous sheath a right heart catheterization was performed. An internal mammary catheter was used to intubate the left internal mammary, a multipurpose catheter the vein jump graft to the OM-1 and OM-2. Cardiac outputs were carried out with both thermodilution and saturations (Anurag). FINDINGS I. HEMODYNAMICS Aortic pressure was 112/65, mean of 87. LV pressure was 105 with a left ventricular end-diastolic pressure of 13. The wedge pressure was 29/29 with a mean of 25. The mean pulmonary artery pressure was 47/20 with a mean of 32. The RV pressure was 47 with a right ventricular end-diastolic pressure of 12. The right atrial pressure was 19/21 with a mean aortic pressure of 14. The thermodilution cardiac output average was 3.3 liters/minute and the Anurag cardiac output was 4.7 liters/minute. The mitral valve mean gradient was 14.21 mm. The mitral valve area was 0.88 cm2 by thermodilution. The PA saturation was 66.8. The RA saturation 67.2. Peripheral artery saturation is 96.0. CORONARIES The left main has some diffuse disease. The LAD was occluded proximally. The OM branches of the circumflex were occluded proximally. The right coronary artery was a large vessel. It had diffuse disease throughout; it was 50% in its mid-area. There was a 75% stenosis distally and a 99% stenosis at the origin of the posterolateral branch. The PDA was large and the posterolateral branch was large. VEIN GRAFTS There was a jump vein graft to the OM1 and OM2. The OM1 graft had diffuse plaquing and grumous material of about 60-70% in the mid-body. The Y-graft going to the OM2 is widely patent. The OM1 at the insertion site of the Y-graft had a 90% stenosis. The CHANG was widely patent and attached into the LAD. Distal to the attachment was a 50% stenosis and a 99% stenosis. CONCLUSIONS 1. Severe mitral stenosis by thermodilution cardiac outputs and right and left heart catheterization. 2. Severe three-vessel coronary artery disease as outlined above. PLAN Bypass surgery to posterior descending artery, posterolateral branch, possibly OM1 and OM2 and to the distal LAD. Kayla Trejo MD, FRCP,[facility]/MAGGIE /10:41 AM /10:48 AM FARHANA
[2017-04-07] MEDS ORDERED: IOHEXOL 350 MG/ML 100 ML BTL (for Cath Lab) OTHER ONE (12:52)
[2017-04-07] MEDS ORDERED: IOHEXOL 350 MG/ML 50 ML BTL (for Cath Lab) OTHER ONE (12:52)
[2017-04-07 14:04] LABS: FERRITIN 281 NG/ML (8-252); FREE T4 1.39 NG/DL (0.76-1.46); TRANSFERRIN IRON PROFILE 175 MG/DL (200-360)
--- NOTE | 2017-04-07 14:22 | PD.CAR.PN ---
CVT Progress Note Subjective/Hospital Course: sts discussed with pt RISK SCORES About the STS Risk Calculator Procedure: MV Replacement + CAB Risk of Mortality: 14.478% Morbidity or Mortality: 47.43% Long Length of Stay: 29.599% Short Length of Stay: 5.079% Permanent Stroke: 3.716% Prolonged Ventilation: 32.988% DSW Infection: 0.749% Renal Failure: 15.808% Reoperation: 15.639% Objective: Vital Signs Date Time Temp Pulse Resp B/P (MAP) Pulse Ox O2 Delivery O2 Flow Rate FiO2 04/07/17 12:00 76 04/07/17 12:00 98.2 97 18 121/79 (93) 99 04/07/17 08:18 18 04/07/17 08:02 98 Nasal Cannula 2.00 04/07/17 07:55 98.4 66 16 120/76 (91) 98 04/07/17 07:51 98 Nasal Cannula 2.00 04/07/17 07:00 66 04/07/17 03:00 80 04/07/17 03:00 98.2 93 16 114/71 (85) 98 04/06/17 23:00 97 04/06/17 23:00 98.4 97 18 123/85 (98) 99 04/06/17 22:30 99 Nasal Cannula 2.00 04/06/17 22:00 99 Nasal Cannula 4.00 04/06/17 21:41 99 Ambu Bag 100 04/06/17 19:00 99.1 97 20 132/79 (96) 94 04/06/17 19:00 98 04/06/17 19:00 94 Room Air 04/06/17 15:02 98.7 96 16 123/79 (94) 94 04/06/17 15:02 96 Labs: Laboratory Tests Test 04/07/17 03:29 04/07/17 12:31 White Blood Count 10.2 TH/MM3 (4.0-11.0) Red Blood Count 2.74 MIL/MM3 (4.00-5.30) Hemoglobin 8.7 GM/DL (11.6-15.3) Hematocrit 24.6 % (35.0-46.0) Mean Corpuscular Volume 89.9 FL (80.0-100.0) Mean Corpuscular Hemoglobin 31.6 PG (27.0-34.0) Mean Corpuscular Hemoglobin Concent 35.2 % (32.0-36.0) Red Cell Distribution Width 14.7 % (11.6-17.2) Platelet Count 201 TH/MM3 (150-450) Mean Platelet Volume 7.3 FL (7.0-11.0) Neutrophils (%) (Auto) 83.1 % (16.0-70.0) Lymphocytes (%) (Auto) 9.9 % (9.0-44.0) Monocytes (%) (Auto) 5.9 % (0.0-8.0) Eosinophils (%) (Auto) 0.8 % (0.0-4.0) Basophils (%) (Auto) 0.3 % (0.0-2.0) Neutrophils # (Auto) 8.5 TH/MM3 (1.8-7.7) Lymphocytes # (Auto) 1.0 TH/MM3 (1.0-4.8) Monocytes # (Auto) 0.6 TH/MM3 (0-0.9) Eosinophils # (Auto) 0.1 TH/MM3 (0-0.4) Basophils # (Auto) 0.0 TH/MM3 (0-0.2) CBC Comment DIFF FINAL Differential Comment Prothrombin Time 11.8 SEC (9.8-11.6) Prothromb Time International Ratio 1.2 RATIO Activated Partial Thromboplast Time 28.2 SEC (24.3-30.1) Blood Urea Nitrogen 22 MG/DL (7-18) Creatinine 0.92 MG/DL (0.50-1.00) Random Glucose 105 MG/DL (74-106) Calcium Level 9.6 MG/DL (8.5-10.1) Sodium Level 134 MEQ/L (136-145) Potassium Level 4.9 MEQ/L (3.5-5.1) Chloride Level 105 MEQ/L (98-107) Carbon Dioxide Level 23.4 MEQ/L (21.0-32.0) Anion Gap 6 MEQ/L (5-15) Estimat Glomerular Filtration Rate 59 ML/MIN (>89) Troponin I 0.99 NG/ML (0.02-0.05) 0.98 NG/ML (0.02-0.05) B-Type Natriuretic Peptide 1446 PG/ML (0-100) Iron Level 45 MCG/DL (50-170) Total Iron Binding Capacity 245 MCG/DL (250-450) Percent Iron Saturation 18.4 % (20-50) Ferritin 281 NG/ML (8-252) Vitamin B12 Level 210 PG/ML (193-986) Folate 6.7 NG/ML (3.1-17.5) Free Thyroxine 1.39 NG/DL (0.76-1.46) Total Triiodothyronine 60 NG/DL (60-181) Result Diagram: 04/07/17 0329 04/07/17 0329 Jaymie Koch Apr 07, 2017 14:22
--- NOTE | 2017-04-07 15:37 | EKG ---
Date Performed: 04/06/2017 Time Performed: 22:07:24 PTAGE: 82 years EKG: Possible anterior infarct - age undetermined Inferior/lateral ST-T changes may be due to my ocardial ischemia Low QRS voltages in precordial leads Abnormal ECG Compared to PREVIOUS TRACING , patient is now in a sinus tachycardia. PREVIOUS TRACIN04/03/2017 15 .51 DOCTOR: Kayla Trejo Interpretating Date/Time 04/07/2017 15:36:25
--- NOTE | 2017-04-07 15:47 | MB ---
cc: OLI COBIAN DATE OF CONSULTATION 04/07/2017 DATE OF 1935 HISTORY OF PRESENT ILLNESS An 82-year-old female, patient of Dr. Mitchell and Dr. Trejo. She presented to the doctor's office. It was noted that her blood pressure was low, she had been feeling light-headed, not feeling well for the last few days, feeling fatigued and tired. She was found to be hypotensive with an elevated creatinine and potassium, also an elevated troponin which may have been also secondary to her elevated creatinine and BNP. She was hydrated with IV fluids. Her creatinine on admission was 1.70, potassium 5.6, troponin 0.86. Her EKG is pending at this time. Atrial fibrillation rate-controlled. Apparently yesterday they called a code blue after she was getting up walking, became very light-headed, found to be bradycardic with slow atrial fibrillation, had asystole and was unresponsive for a short time. They gave atropine and CPR. She immediately responded and she was followed by critical care medicine. She had been on Multaq which was placed on hold. She underwent a cardiac cath this morning for a non-STEMI cardiac arrest, history of severe mitral stenosis, history of prior coronary artery bypass grafting. The right-sided heart cath showed a cardiac output of 4.7, wedge pressure 29 with a mean of 25, PA pressure 47/20, RV pressure 47 with right ventricular end-diastolic pressure of 12. The left main had some diffuse disease. The LAD was occluded proximally. The OM branches of the circumflex were occluded proximally. There was diffuse disease of about 60-70 in the OM jump graft from the OM1 to the OM2. The Y-graft to the OM2 was widely patent. The OM1 had a 90% stenosis. The CHANG was widely patent and attached to the LAD. Distal to the attachment was a 50% stenosis and a 99% stenosis. Request was for surgery to the OM1, OM2 and to the distal LAD, and also mitral valve replacement. PAST MEDICAL HISTORY 1. Coronary artery disease with prior MA. 2. Mitral valve stenosis. 3. Atrial flutter with prior ablation. 4. Hypertension. 5. Hypothyroidism. PAST SURGICAL HISTORY 1. Coronary artery bypass graft x3 with mitral valve repair 1996 in [place]. 2. AP ablation. 3. Appendectomy. 4. Total abdominal hysterectomy. ALLERGIES 1. ALBUTEROL. 2. AMLODIPINE. 3. ATORVASTATIN. 4. CHOLINE FENOFIBRATE. 5. COLESTRIN. 6. DABIGATRAN. 7. LISINOPRIL. 8. PITAVASTATIN. 9. ROSUVASTATIN. FAMILY HISTORY Noncontributory. SOCIAL HISTORY Patient is ; however, she cares for her . He is bed-ridden. She takes care of him with the help of her son. She is very stressed at home. She does drive, cook and clean. She does have a recumbent bike that she rides periodically. REVIEW OF SYSTEMS GENERAL: No night sweats, fever, heat or cold intolerance. SKIN: No psoriasis, itching or hives. HEENT: No blurred vision or hearing loss. RESPIRATORY: Positive for shortness of breath. CARDIOVASCULAR: As above in the HPI. GASTROINTESTINAL: No diarrhea or vomiting. GENITOURINARY: No burning, frequency or urgency. 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 ENDOCRINE: Positive for hypothyroidism. PHYSICAL EXAMINATION VITAL SIGNS: On exam blood pressure is 120/70, heart rate 90, afebrile, O2 sat 98 on 2 liters. GENERAL: Patient is awake, alert, in no acute distress. HEENT: Head is normocephalic, atraumatic. Pupils equal and reactive. Oral mucosa pink and moist. NECK: Supple. No JVD. HEART: Heart sounds S1, S2, irregular rate and rhythm. 1/6 systolic murmur. LUNGS: Diminished in the bases, otherwise clear to auscultation. EXTREMITIES: No cyanosis, clubbing or edema. NEUROLOGIC: Alert and oriented x4. Motor grossly within normal limits. LABORATORY Lab work shows hemoglobin 8.7, hematocrit 24, white cell count 10, platelet count 201. Sodium 134, potassium 5.0, BUN 33, creatinine 1.20. Troponin was as high as 0.86. BNP of 296. Lactic acid was 1. INR 1.2. Urinalysis showed moderate leukocyte esterase. MRSA screen negative. Urine showed Klebsiella. IMPRESSION AND RECOMMENDATIONS This is an 82-year-old female with a history of coronary artery disease, prior mitral valve repair, now presenting with elevated troponin and non-STEMI. Underwent cardiac cath with disease to the OM1, OM2 and the LAD, and also severe mitral stenosis. Consultation regarding mitral valve replacement and coronary artery bypass grafting as above. In the meantime STS data has been calculated showing a risk of mortality of 14.47, morbidity mortality 47, renal failure 15%, prolong ventilatory 32%, rating her is very high risk mortality. Also morbid obesity. Other history includes hyperlipidemia, hypothyroidism, hypertension, acute kidney injury, hypernatremia resolved, chronic atrial fibrillation/flutter, recent cardiac arrest with an asystole, normocytic anemia, chronic anticoagulation and UTI. The patient has very high-risk mortality; however, we will check a CT chest. This would be a redo on this patient, again which is even higher risk for mortality and further decision and planning. The patient at this time is indecisive and wants to speak to her son about any possible surgery. In the meantime will check a CT thorax and go from there. Dictated by: IRVIN Lazo MD VICKI Brantley/AYESHA /2:22 PM /3:45 PM
[2017-04-07] MEDS: MONTELUKAST SODIUM 10 MG TAB PO SCH (21:26)
[2017-04-08] VITALS (7 sets, daily range): BP systolic 107–120; BP diastolic 65–73; PULSE 70–105; RESP 18; TEMP 97.5–99.6; O2SAT 94–98
--- NOTE | 2017-04-08 02:48 | RADRPT ---
EXAM DATE/TIME: 04/08/2017 01:38 [facility] COMPARISON: No previous studies available for comparison. INDICATIONS : Pre-operative heart surgery. RADIATION DOSE: 5.57 CTDIvol (mGy) MEDICAL HISTORY : Cardiovascular disease. Hypertension. SURGICAL HISTORY : None. ENCOUNTER: Initial ACUITY: 1 day PAIN SCALE: 0/10 LOCATION: Bilateral chest TECHNIQUE: Volumetric scanning of the chest was performed. Using automated exposure control and adjustment of t he mA and/or kV according to patient size, radiation dose was kept as low as reasonably achievable to obtain optimal diagnostic quality images. DICOM format image data is available electronically for r eview and comparison. Follow-up recommendations for detected pulmonary nodules are based at a minimum on nodule size and pa tient risk factors according to Fleischner Society Guidelines. FINDINGS: LUNGS: There is minimal increased density at the posterior lung bases likely related to atelectasis. PLEURAE: There are minimal bilateral pleural effusions. MEDIASTINUM: The patient is status post sternotomy. Calcification is seen the aortic arch. Calcification seen in t he [place] coronary arteries. Normal-sized lymph nodes are seen. AXILLAE: Within normal limits. No lymphadenopathy. MUSCULOSKELETAL: Within normal limits for patient age. MISCELLANEOUS: The visualized upper abdominal organs demonstrate no acute abnormality. Calcified gallstones are seen . There is a 0.5 cm nonobstructing right renal stone. There is a mild hiatal hernia present. CONCLUSION: 1. Minimal atelectasis and effusions at the lung bases. 2. Status post sternotomy. 3. Gallstones. 4. Nonobstructing right renal stone. 5. Mild hiatal hernia. Ismael Cordon MD on April 08, 2017 at 2:44 Board Certified Radiologist. This report was verified electronically.
[2017-04-08] MEDS: CEFEPIME INJ 1,000 MG in SODIUM CHLORIDE 0.9% INJ 100 ML IV SCH (03:47)
[2017-04-08] MEDS: CHLORHEXIDINE GLUCONATE 2 % 1 PACK (2 CLOTHS) TOP SCH (04:00)
[2017-04-08 05:28] LABS: HEMATOCRIT 25.2 % (35.0-46.0); MEAN CELL VOLUME 89.8 FL (80.0-100.0); MEAN CORPUSCULAR HEMOGLOBIN 31.3 PG (27.0-34.0); MEAN CORPUSCULAR HGB CONC 34.8 % (32.0-36.0); PLATELET COUNT 238 TH/MM3 (150-450); RED CELL DISTRIBUTION WIDTH 14.4 % (11.6-17.2); REVIEW FLAG FINAL; WHITE BLOOD COUNT 8.7 TH/MM3 (4.0-11.0)
[2017-04-08 05:48] LABS: APTT (PATIENT) 26.6 SEC (24.3-30.1); INTERNATIONAL NORMALIZED RATIO 1.1 RATIO; PROTHROMBIN TIME - PATIENT 11.1 SEC (9.8-11.6)
[2017-04-08 05:56] LABS: BICARBONATE 24.8 MEQ/L (21.0-32.0); POTASSIUM 4.5 MEQ/L (3.5-5.1)
[2017-04-08] MEDS: NITROGLYCERIN 2% OINT 1 GM PACKET TOPICAL SCH ×3 (06:00→21:48)
[2017-04-08] MEDS: SODIUM CHLOR 0.9% 1000 ML INJ 1,000 ML IV SCH ×3 (06:01→18:45)
[2017-04-08] MEDS ORDERED: FUROSEMIDE 40 MG/4 ML VIAL IV PUSH ONE (09:15)
[2017-04-08] MEDS ORDERED: POTASSIUM CHLORIDE 8 MEQ CONTROLLED RELEASE TAB PO ONE (09:30)
[2017-04-08] MEDS: ASPIRIN 81 MG CHEW TAB PO SCH (09:55)
[2017-04-08] MEDS: DOCUSATE SODIUM 50 MG/SENNA 8.6 MG TAB PO SCH ×2 (09:55→21:48)
[2017-04-08] MEDS: CHOLECALCIFEROL (VIT D3) 1000 UNIT TAB PO SCH (09:55)
--- NOTE | 2017-04-08 09:56 | HHI.PR ---
Subjective Remarks The patient was sitting in a chair. She was comfortable. She was concerned about moving down to the stepdown unit because she coded the day before yesterday. She currently has no acute complaints. Objective Vitals Vital Signs Date Time Temp Pulse Resp B/P (MAP) Pulse Ox O2 Delivery O2 Flow Rate FiO2 04/08/17 09:40 97 21 04/08/17 07:00 Room Air 04/08/17 07:00 98 04/08/17 07:00 98.4 98 18 107/73 (84) 98 04/08/17 03:00 97.5 98 18 108/67 (81) 94 04/08/17 03:00 97 04/08/17 00:38 18 04/07/17 23:00 97.3 102 20 109/71 (84) 93 04/07/17 23:00 99 04/07/17 20:06 21 04/07/17 19:00 100 04/07/17 19:00 94 Room Air 04/07/17 19:00 97.7 104 20 102/58 (73) 94 04/07/17 16:44 98 Nasal Cannula 2.00 04/07/17 16:00 75 04/07/17 16:00 98.4 97 18 126/67 (86) 99 04/07/17 12:00 76 04/07/17 12:00 98.2 97 18 121/79 (93) 99 I/O 04/07/17 04/07/17 04/07/17 04/08/17 04/08/17 04/08/17 06:59 14:59 22:59 06:59 14:59 22:59 Intake Total 1130 ml 980 ml 340 ml Output Total 450 ml 1050 ml 1450 ml Balance 680 ml -70 ml -1110 ml Intake Oral 480 ml 480 ml 240 ml IV Total 650 ml 500 ml 100 ml Output Urine Total 450 ml 1050 ml 1450 ml # Voids 2 3 # Bowel Movements 1 0 0 Result Diagram: 04/08/17 0413 04/08/17 0413 Imaging Last Impressions Chest CT 04/08/17 0000 Signed Impressions: Service Date/Time: Saturday, April 08, 2017 01:38 - CONCLUSION: 1. Minimal atelectasis and effusions at the lung bases. 2. Status post sternotomy. 3. Gallstones. 4. Nonobstructing right renal stone. 5. Mild hiatal hernia. Ismael Cordon MD Chest X-Ray 04/06/17 0000 Signed Impressions: Service Date/Time: Thursday, April 06, 2017 22:09 - CONCLUSION: Borderline cardiomegaly. Ismael Cordon MD Objective Remarks GENERAL: Resting comfortably. HEENT: NC, AT. CARDIOVASCULAR: Regular rate and rhythm. RESPIRATORY: No accessory muscle use. Clear to auscultation. Breath sounds equal bilaterally. GASTROINTESTINAL: Abdomen soft, non-tender, nondistended. Hepatic and splenic margins not palpable. MUSCULOSKELETAL: TR LE edema. NEUROLOGICAL: Awake and alert. No obvious cranial nerve deficits. Motor grossly within normal limits. Five out of 5 muscle strength in the arms and legs. Normal speech. PSYCHIATRIC: Appropriate mood and affect; insight and judgment normal. Procedures Catheterization Medications and IVs Current Medications Medications (Trade) Dose Ordered Sig/Rona Route Start Time Stop Time Status Last Admin Sodium Chloride 1,000 ml @ 50 mls/hr Q20H IV 04/03/17 18:45 04/05/17 02:12 (Mag-Ox) 800 mg UNSCH PRN PO 04/03/17 19:00 Magnesium Sulfate 4 gm/Sodium Chloride 100 ml @ 50 mls/hr UNSCH PRN IV 04/03/17 19:00 Magnesium Sulfate 2 gm/Sodium Chloride 100 ml @ 50 mls/hr UNSCH PRN IV 04/03/17 19:00 Potassium Chloride 100 ml @ 50 mls/hr Q2H PRN IV 04/03/17 19:00 Potassium Chloride 100 ml @ 50 mls/hr Q2H PRN IV 04/03/17 19:00 Potassium Chloride 100 ml @ 50 mls/hr Q2H PRN IV 04/03/17 19:00 Potassium Chloride 100 ml @ 25 mls/hr UNSCH PRN IV 04/03/17 19:00 (K-Phos) 2,000 mg Q4H PRN PO 04/03/17 19:00 (K-Phos) 2,000 mg UNSCH PRN PO/TUBE 04/03/17 19:00 Potassium Phosphate 30 mmol/ Sodium Chloride 260 ml @ 42 mls/hr UNSCH PRN IV 04/03/17 19:00 Sodium Phosphate 30 mmol/Sodium Chloride 250 ml @ 42 mls/hr UNSCH PRN IV 04/03/17 19:00 (Tylenol) 650 mg Q6H PRN PO 04/03/17 19:00 04/07/17 23:01 (Zofran Inj) 4 mg Q6H PRN IV PUSH 04/03/17 19:00 Miscellaneous Information 1 Q361D XX 04/03/17 19:00 (Chlorhexidine 2% Cloth) 3 pack Taper DAILY@04 TOP 04/04/17 04:00 03/31/18 03:59 04/08/17 04:00 (Chlorhexidine 2% Cloth) 3 pack UNSCH PRN TOP 04/03/17 19:00 (Emelina-Colace) 1 tab BID PO 04/03/17 21:00 04/08/17 09:55 (Vitamin D3) 2,000 units DAILY PO 04/04/17 09:00 04/08/17 09:55 (Synthroid) 50 mcg DAILY@0600 PO 04/04/17 06:00 Future Hold 04/06/17 05:56 (Singulair) 10 mg HS PO 04/03/17 21:00 04/07/17 21:26 (Aspirin Chew) 81 mg DAILY PO 04/05/17 09:00 04/08/17 09:55 (Lopressor) 25 mg Q12HR PO 04/05/17 21:00 Future Hold 04/06/17 20:49 (Nitroglycerin 2% Oint) 1 inch Q8HR TOPICAL 04/05/17 17:45 04/08/17 06:00 (Narcan Inj) 0.4 mg UNSCH PRN IV PUSH 04/06/17 14:00 (Milk Of Magnesia Liq) 30 ml Q12H PRN PO 04/06/17 14:00 04/06/17 14:09 (Senokot) 17.2 mg Q12H PRN PO 04/06/17 14:00 (Dulcolax Supp) 10 mg DAILY PRN RECTAL 04/06/17 14:00 (Lactulose Liq) 30 ml DAILY PRN PO 04/06/17 14:00 Sodium Chloride 1,000 ml @ 100 mls/hr Q10H IV 04/06/17 14:32 04/11/17 14:31 (Restoril) 7.5 mg HS PRN PO 04/08/17 21:00 (Vitamin B12 Inj) 1,000 mcg ONCE ONCE IM 04/08/17 10:45 04/08/17 10:46 Ceftriaxone Sodium 1000 mg/ Sodium Chloride 100 ml @ 200 mls/hr Q24H IV 04/08/17 15:00 04/11/17 15:29 UNV A/P Problem List: (1) Normocytic anemia ICD Code: D64.9 - Anemia, unspecified (2) Severe mitral stenosis by prior echocardiogram ICD Code: I05.0 - Rheumatic mitral stenosis (3) Hyponatremia ICD Code: E87.1 - Hypo-osmolality and hyponatremia (4) History of atrial flutter ICD Code: Z86.79 - Personal history of other diseases of the circulatory system (5) Chronic anticoagulation ICD Code: Z79.01 - exterminator (current) use of anticoagulants (6) Hypothyroidism ICD Code: E03.9 - Hypothyroidism, unspecified (7) Dyslipidemia ICD Code: E78.5 - Hyperlipidemia, unspecified (8) History of hypertension ICD Code: Z86.79 - Personal history of other diseases of the circulatory system (9) Hyperkalemia ICD Code: E87.5 - Hyperkalemia (10) Cardiomyopathy ICD Code: I42.9 - Cardiomyopathy, unspecified (11) Dehydration ICD Code: E86.0 - Dehydration Status: Acute (12) Dizziness ICD Code: R42 - Dizziness and giddiness Status: Acute (13) Elevated troponin ICD Code: R74.8 - Abnormal levels of other serum enzymes Status: Acute (14) RAMU (acute kidney injury) ICD Code: N17.9 - Acute kidney failure, unspecified Status: Acute Assessment and Plan NSTEMI/ Acute on chronic CHF/ Afib Transfered from [facility] for cardiac catheterization as the pt's trops peaked at 1. The pt has coronary artery disease status post CABG 3 with mitral valve repair in 1996. Severe mitral stenosis and EF 57% by RAMILA 01/05. She was initially hypotensive. Slow A fib noted on telemetry 04/06 and then pause. She became unresponsive without palpable pulse so atropine 1 mg IV was administered with couple of chest compressions and she became responsive. EKG with junctional rhythm, minimal ST depression inferiorly with T wave inversion, no ST elevation. BNP was markedly elevated. Cath showed: Severe mitral stenosis; Severe three-vessel coronary artery disease. CT surgery consult appreciated. - Currently holding Dronedarone 400 mg by mouth twice a day, valsartan 320 mg by mouth daily, spironolactone 25 mg twice a day. Patient's been off torsemide 20 mg every other day for several weeks. - work-up per CTS. - Holding anticoagulation per cardiology request. Hypotension Improved after IVFs. - hold antihypertensive meds. - IVFs. Abnormal TSH while on Synthroid TSH was noted to be borderline low. T3 and free T4 noted. - decrease to 37.5 mcg daily with outpatient follow-up. Anemia Hgb is lower than baseline. B12 level low normal. - check Hemoccult. - B12 IM x 1. - follow CBC as needed. Renal insufficiency Improved with hydration. - continue IVFs and avoid nephrotoxins. DVT ppx per cardiology Discharge Planning CTS work-up pending Problem Qualifiers (1) Hypothyroidism: Qualified Codes: E03.9 - Hypothyroidism, unspecified (2) Cardiomyopathy: Qualified Codes: I42.9 - Cardiomyopathy, unspecified Seymour Tamayo DO Apr 08, 2017 09:56
--- NOTE | 2017-04-08 10:26 | PD.CAR.PN ---
CVT Progress Note Subjective/Hospital Course: 82-year-old female, patient of Dr. Mitchell and Dr. Trejo Presented to the doctor's office. It was noted that her blood pressure was low, she had been feeling light-headed, not feeling well for the last few days, feeling fatigued and tired. She was found to be hypotensive with an elevated creatinine and potassium, also an elevated troponin which may have been also secondary to her elevated creatinine and BNP. She was hydrated with IV fluids. Her creatinine on admission was 1.70, potassium 5.6, troponin 0.86. Her EKG showed afib with poor r wave progression ant leads , on 04/06 22:00 [t was up walking with nurse , felt light-headed, found to be bradycardic with slow atrial fibrillation, then became unresponsive, Code Blue called, CPR , ACLS performed with atropine . Home med Multaq which was placed on hold. She underwent a cardiac cath this morning for a non-STEMI cardiac arrest, history of severe mitral stenosis, history of prior coronary artery bypass grafting 1996. The right- sided heart cath showed a cardiac output of 4.7, wedge pressure 29 with a mean of 25, PA pressure 47/20, RV pressure 47 with right ventricular end-diastolic pressure of 12. The left main had some diffuse disease. The LAD was occluded proximally. The OM branches of the circumflex were occluded proximally. There was diffuse disease of about 60-70 in the OM jump graft from the OM1 to the OM2. The Y-graft to the OM2 was widely patent. The OM1 had a 90% stenosis. The CHANG was widely patent and attached to the LAD. Distal to the attachment was a 50% stenosis and a 99% stenosis. Request was for surgery to the OM1, OM2 and to the distal LAD, and also mitral valve replacement. STS risk for mortality 14.78 % PAST MEDICAL HISTORY 1. Coronary artery disease with prior [place]., Mitral valve stenosis, Atrial flutter with prior ablation, Hypertension, Hypothyroidism, normocytic anemia PAST SURGICAL HISTORY 1. Coronary artery bypass graft x3 with mitral valve repair 1996 in [place]. 2. AP ablation. 04/08 CT chest completed : . Calcification is seen the aortic arch. Calcification seen in the [place] coronary arteries. carotid US, PFT, leg vein mapping pending no further bradycardia noted since 04/06 remains in afib, Heparin gtt started, gentle diuresis all studies will be evaluated by Dr Mcwilliams / and decision will be made at that time, and if pt wishes to consent she may need eval by tertiary center Objective: GENERAL: SKIN: Warm and dry. HEAD: Normocephalic. EYES: No scleral icterus. No injection or drainage. NECK: Supple, trachea midline. No JVD or lymphadenopathy. CARDIOVASCULAR: Regular rate and rhythm without 2/6 murmurs, +1 lower ext edema RESPIRATORY: few crackles right lower base Breath sounds equal bilaterally. No accessory muscle use. GASTROINTESTINAL: Abdomen soft, non-tender, nondistended. MUSCULOSKELETAL: No cyanosis, BACK: Nontender without obvious deformity. No CVA tenderness. Vital Signs Date Time Temp Pulse Resp B/P (MAP) Pulse Ox O2 Delivery O2 Flow Rate FiO2 04/08/17 09:40 97 21 04/08/17 07:00 Room Air 04/08/17 07:00 98 04/08/17 07:00 98.4 98 18 107/73 (84) 98 04/08/17 03:00 97.5 98 18 108/67 (81) 94 04/08/17 03:00 97 04/08/17 00:38 18 04/07/17 23:00 97.3 102 20 109/71 (84) 93 04/07/17 23:00 99 04/07/17 20:06 21 04/07/17 19:00 100 04/07/17 19:00 94 Room Air 04/07/17 19:00 97.7 104 20 102/58 (73) 94 04/07/17 16:44 98 Nasal Cannula 2.00 04/07/17 16:00 75 04/07/17 16:00 98.4 97 18 126/67 (86) 99 04/07/17 12:00 76 04/07/17 12:00 98.2 97 18 121/79 (93) 99 Labs: Laboratory Tests Test 04/08/17 04:13 White Blood Count 8.7 TH/MM3 (4.0-11.0) Red Blood Count 2.80 MIL/MM3 (4.00-5.30) Hemoglobin 8.8 GM/DL (11.6-15.3) Hematocrit 25.2 % (35.0-46.0) Mean Corpuscular Volume 89.8 FL (80.0-100.0) Mean Corpuscular Hemoglobin 31.3 PG (27.0-34.0) Mean Corpuscular Hemoglobin Concent 34.8 % (32.0-36.0) Red Cell Distribution Width 14.4 % (11.6-17.2) Platelet Count 238 TH/MM3 (150-450) Mean Platelet Volume 7.2 FL (7.0-11.0) Prothrombin Time 11.1 SEC (9.8-11.6) Prothromb Time International Ratio 1.1 RATIO Activated Partial Thromboplast Time 26.6 SEC (24.3-30.1) Blood Urea Nitrogen 29 MG/DL (7-18) Creatinine 0.99 MG/DL (0.50-1.00) Random Glucose 88 MG/DL (74-106) Calcium Level 9.6 MG/DL (8.5-10.1) Sodium Level 135 MEQ/L (136-145) Potassium Level 4.5 MEQ/L (3.5-5.1) Chloride Level 104 MEQ/L (98-107) Carbon Dioxide Level 24.8 MEQ/L (21.0-32.0) Anion Gap 6 MEQ/L (5-15) Estimat Glomerular Filtration Rate 54 ML/MIN (>89) Result Diagram: 04/08/1741204/08/17412 Telemetry: Afib (1) Coronary artery disease Plan: ASA, no BB or multaq with recent aystole cardiac arrest allergic to statins gentle diuresis (2) RAMU (acute kidney injury) Plan: improved (3) Normocytic anemia Plan: iron def anemia , Hemoccult pending / pt was on penitentiary anticoagulation with coumadin (4) Chronic anticoagulation (5) History of atrial flutter Plan: on Heparin gtt / monitor H&H (6) Severe mitral stenosis by prior echocardiogram Plan: EF 50% Jaymie Koch Apr 08, 2017 10:26
--- NOTE | 2017-04-08 10:42 | RADRPT ---
EXAM DATE/TIME: 04/08/2017 10:00 [facility] COMPARISON: No previous studies available for comparison. INDICATIONS : Preop cardiac surgery. MEDICAL HISTORY : Myocardial infarction. Hypercholesterolemia. Thyroid disease. Coronary artery disease. Afib. HTN. A sthma. Anticoagulant therapy, Heparin. SURGICAL HISTORY : Hysterectomy. Mitral valve repair. CABG. Cardiac catheterization. Blood transfusions. Ablasions/c ardoversions. ENCOUNTER: Initial ACUITY: 1 day PAIN SCORE: 0/10 LOCATION: Bilateral neck PEAK SYSTOLIC VELOCITIES (cm/sec): ICA/CCA RATIO: Right: 0.8 Left: 1.4 ICA: Right: 71 Left: 89 CCA: Right: 94 Left: 62 ECA: Right: 105 Left: 88 VERTEBRAL: Right: 53 antegrade Left: 50 antegrade Elevated flow velocities and ICA/CCA ratios have been found to correlate with increased degrees of vessel stenosis, calculated as percentage of diameter relative to a normal segment of distal ICA/CCA FINDINGS: RIGHT CAROTID: No significant stenosis is visualized. The waveforms are within normal limits. LEFT CAROTID: No significant stenosis is visualized. The waveforms are within normal limits. VERTEBRAL ARTERIES: Antegrade flow is seen in both vertebral arteries. MISCELLANEOUS: None. CONCLUSION: Normal examination with scattered plaque but no obvious two-dimensional stenosis. Haseeb Clement MD on April 08, 2017 at 10:40 Board Certified Radiologist. This report was verified electronically.
--- NOTE | 2017-04-08 10:43 | RADRPT ---
EXAM DATE/TIME: 04/08/2017 09:35 [facility] COMPARISON: No previous studies available for comparison. INDICATIONS : Preop cardiac surgery. MEDICAL HISTORY : Myocardial infarction. Hypercholesterolemia. Thyroid disease. Coronary artery disease. Afib. HTN. As thma. Anticoagulant therapy, Heparin. SURGICAL HISTORY : Hysterectomy. Mitral valve repair. CABG. Cardiac catheerization. Blood transfusions. Ablasions/cardov ersions. ENCOUNTER: Subsequent ACUITY: 1 day PAIN SCORE: 0/10 LOCATION: Bilateral leg. TECHNIQUE: Venous ultrasound of the left and right leg was performed from the inguinal ligament to the proximal calf. Real-time, color Doppler and spectral tracing, compression and augmentation techniques were us ed. FINDINGS: RIGHT LEG: There is normal compressibility of the deep venous system from the inguinal region to the proximal ca lf. No echogenic clot is seen in the lumen of the common femoral, femoral, popliteal, and posterior tibial veins. There is a normal response of the venous system to proximal and distal augmentation an d respiration. LEFT LEG: There is normal compressibility of the deep venous system from the inguinal region to the proximal ca lf. No echogenic clot is seen in the lumen of the common femoral, femoral, popliteal, and posterior tibial veins. There is a normal response of the venous system to proximal and distal augmentation an d respiration. CONCLUSION: 1. No sonographic evidence for lower extremity DVT. Chirag Langford MD on April 08, 2017 at 10:41 Board Certified Radiologist. This report was verified electronically.
--- NOTE | 2017-04-08 10:44 | RADRPT ---
EXAM DATE/TIME: 04/08/2017 09:43 [facility] COMPARISON: No previous studies available for comparison. INDICATIONS : Preop cardiac surgery. MEDICAL HISTORY : Myocardial infarction. Hypercholesterolemia. Thyroid disease. Coronary artery disease. Afib. HTN. As thma. Anticoagulant therapy, Heparin. SURGICAL HISTORY : Hysterectomy. Mitral valve repair. CABG. Cardiac catheterization. Blood transfusions. Ablasions/car doversions. ENCOUNTER: Initial ACUITY: 1 day PAIN SCORE: 0/10 LOCATION: Bilateral leg. GREATER SAPHENOUS VEIN THIGH: PROXIMAL: Right 4 mm Left 5 mm MID: Right 4 mm Left 3 mm DISTAL: Right 3 mm Left 2 mm CALF: PROXIMAL: Right 3 mm Left 2 mm MID: Right 2 mm Left Non-visualized DISTAL: Right 2 mm Left Non-visualized FINDINGS: The venous system of the lower extremities are patent by color Doppler imaging. Measurements of the leg veins (in mm) are listed above. CONCLUSION: 1. Lower extremity venous mapping, as above. Chirag Langford MD on April 08, 2017 at 10:41 Board Certified Radiologist. This report was verified electronically.
[2017-04-08] MEDS ORDERED: CYANOCOBALAMIN 1000 MCG/ML VIAL IM ONE (10:45)
[2017-04-08] MEDS ORDERED: PILL SPLITTER OTHER PRN (11:00)
[2017-04-08] MEDS ORDERED: HEPARIN SODIUM - IV 10,000 UNITS/10 ML VIAL IV PUSH PRN ×2 (11:45)
[2017-04-08] MEDS: HEPARIN 25,000 UNITS-D5W 250 ML - PREMIX IV PRN (12:49)
--- NOTE | 2017-04-08 14:51 | PD.CARD.PN ---
Subjective Subjective Remarks The patient is currently hemodynamically stable. She denies CP or SOB this morning. Tele atrial fibrillation with rate 103 bpm. BP is a little low (Pati Ramachandran) Objective Medications Current Medications Medications (Trade) Dose Ordered Sig/Rona Route Start Time Stop Time Status Last Admin Sodium Chloride 1,000 ml @ 50 mls/hr Q20H IV 04/03/17 18:45 04/05/17 02:12 (Mag-Ox) 800 mg UNSCH PRN PO 04/03/17 19:00 Magnesium Sulfate 4 gm/Sodium Chloride 100 ml @ 50 mls/hr UNSCH PRN IV 04/03/17 19:00 Magnesium Sulfate 2 gm/Sodium Chloride 100 ml @ 50 mls/hr UNSCH PRN IV 04/03/17 19:00 Potassium Chloride 100 ml @ 50 mls/hr Q2H PRN IV 04/03/17 19:00 Potassium Chloride 100 ml @ 50 mls/hr Q2H PRN IV 04/03/17 19:00 Potassium Chloride 100 ml @ 50 mls/hr Q2H PRN IV 04/03/17 19:00 Potassium Chloride 100 ml @ 25 mls/hr UNSCH PRN IV 04/03/17 19:00 (K-Phos) 2,000 mg Q4H PRN PO 04/03/17 19:00 (K-Phos) 2,000 mg UNSCH PRN PO/TUBE 04/03/17 19:00 Potassium Phosphate 30 mmol/ Sodium Chloride 260 ml @ 42 mls/hr UNSCH PRN IV 04/03/17 19:00 Sodium Phosphate 30 mmol/Sodium Chloride 250 ml @ 42 mls/hr UNSCH PRN IV 04/03/17 19:00 (Tylenol) 650 mg Q6H PRN PO 04/03/17 19:00 04/07/17 23:01 (Zofran Inj) 4 mg Q6H PRN IV PUSH 04/03/17 19:00 Miscellaneous Information 1 Q361D XX 04/03/17 19:00 (Chlorhexidine 2% Cloth) 3 pack Taper DAILY@04 TOP 04/04/17 04:00 03/31/18 03:59 04/08/17 04:00 (Chlorhexidine 2% Cloth) 3 pack UNSCH PRN TOP 04/03/17 19:00 (Emelina-Colace) 1 tab BID PO 04/03/17 21:00 04/08/17 09:55 (Vitamin D3) 2,000 units DAILY PO 04/04/17 09:00 04/08/17 09:55 (Singulair) 10 mg HS PO 04/03/17 21:00 04/07/17 21:26 (Aspirin Chew) 81 mg DAILY PO 04/05/17 09:00 04/08/17 09:55 (Lopressor) 25 mg Q12HR PO 04/05/17 21:00 Future Hold 04/06/17 20:49 (Nitroglycerin 2% Oint) 1 inch Q8HR TOPICAL 04/05/17 17:45 04/08/17 06:00 (Narcan Inj) 0.4 mg UNSCH PRN IV PUSH 04/06/17 14:00 (Milk Of Magnesia Liq) 30 ml Q12H PRN PO 04/06/17 14:00 04/06/17 14:09 (Senokot) 17.2 mg Q12H PRN PO 04/06/17 14:00 (Dulcolax Supp) 10 mg DAILY PRN RECTAL 04/06/17 14:00 (Lactulose Liq) 30 ml DAILY PRN PO 04/06/17 14:00 Sodium Chloride 1,000 ml @ 100 mls/hr Q10H IV 04/06/17 14:32 04/11/17 14:31 (Restoril) 7.5 mg HS PRN PO 04/08/17 21:00 Ceftriaxone Sodium 1000 mg/ Sodium Chloride 100 ml @ 200 mls/hr Q24H IV 04/08/17 15:00 04/11/17 15:29 (Synthroid) 37.5 mcg DAILY@0600 PO 04/09/17 06:00 (Pill Splitter) 1 ea UNSCH PRN OTHER 04/08/17 11:00 Heparin Sodium/ Dextrose 250 ml @ 9 mls/hr TITRATE PRN IV 04/08/17 11:45 04/08/17 12:49 (Heparin Inj) 5,000 units UNSCH PRN IV PUSH 04/08/17 11:45 (Heparin Inj) 2,500 units UNSCH PRN IV PUSH 04/08/17 11:45 Vital Signs / I&O Vital Signs Date Time Temp Pulse Resp B/P (MAP) Pulse Ox O2 Delivery O2 Flow Rate FiO2 04/08/17 11:00 102 04/08/17 11:00 98.0 102 18 108/65 (79) 96 04/08/17 09:40 97 21 04/08/17 07:00 Room Air 04/08/17 07:00 98 04/08/17 07:00 98.4 98 18 107/73 (84) 98 04/08/17 03:00 97.5 98 18 108/67 (81) 94 04/08/17 03:00 97 04/08/17 00:38 18 04/07/17 23:00 97.3 102 20 109/71 (84) 93 04/07/17 23:00 99 04/07/17 20:06 21 04/07/17 19:00 100 04/07/17 19:00 94 Room Air 04/07/17 19:00 97.7 104 20 102/58 (73) 94 04/07/17 16:44 98 Nasal Cannula 2.00 04/07/17 16:00 75 04/07/17 16:00 98.4 97 18 126/67 (86) 99 I/O 04/07/17 04/07/17 04/07/17 04/08/17 04/08/17 04/08/17 07:00 15:00 23:00 07:00 15:00 23:00 Intake Total 1130 ml 980 ml 340 ml Output Total 450 ml 1050 ml 1450 ml Balance 680 ml -70 ml -1110 ml Intake Oral 480 ml 480 ml 240 ml IV Total 650 ml 500 ml 100 ml Output Urine Total 450 ml 1050 ml 1450 ml # Voids 2 3 # Bowel Movements 1 0 0 Physical Exam GENERAL: Up in the chair eating lunch, son is at the bedside SKIN: Warm and dry. HEAD: Normocephalic. EYES: No scleral icterus. NECK: Supple, trachea midline. CARDIOVASCULAR: Irreg irreg, tachycardia. defibrillator pads in place RESPIRATORY: Breath sounds equal bilaterally. No accessory muscle use. GASTROINTESTINAL: Abdomen soft, non-tender, nondistended. MUSCULOSKELETAL: No cyanosis, or edema. BACK: Nontender without obvious deformity. Laboratory Laboratory Tests Test 04/08/17 04:13 White Blood Count 8.7 TH/MM3 Red Blood Count 2.80 MIL/MM3 Hemoglobin 8.8 GM/DL Hematocrit 25.2 % Mean Corpuscular Volume 89.8 FL Mean Corpuscular Hemoglobin 31.3 PG Mean Corpuscular Hemoglobin Concent 34.8 % Red Cell Distribution Width 14.4 % Platelet Count 238 TH/MM3 Mean Platelet Volume 7.2 FL Prothrombin Time 11.1 SEC Prothromb Time International Ratio 1.1 RATIO Activated Partial Thromboplast Time 26.6 SEC Blood Urea Nitrogen 29 MG/DL Creatinine 0.99 MG/DL Random Glucose 88 MG/DL Calcium Level 9.6 MG/DL Sodium Level 135 MEQ/L Potassium Level 4.5 MEQ/L Chloride Level 104 MEQ/L Carbon Dioxide Level 24.8 MEQ/L Anion Gap 6 MEQ/L Estimat Glomerular Filtration Rate 54 ML/MIN Imaging Last 24 hours Impressions Lower Extremity Ultrasound 04/08/17 0000 Signed Impressions: Service Date/Time: Saturday, April 08, 2017 09:43 - CONCLUSION: 1. Lower extremity venous mapping, as above. Chirag Langford MD Lower Extremity Ultrasound 04/08/17 0000 Signed Impressions: Service Date/Time: Saturday, April 08, 2017 09:35 - CONCLUSION: 1. No sonographic evidence for lower extremity DVT. Chirag Langford MD Chest CT 04/08/17 0000 Signed Impressions: Service Date/Time: Saturday, April 08, 2017 01:38 - CONCLUSION: 1. Minimal atelectasis and effusions at the lung bases. 2. Status post sternotomy. 3. Gallstones. 4. Nonobstructing right renal stone. 5. Mild hiatal hernia. Ismael Cordon MD Carotid Artery Ultrasound 04/08/17 0000 Signed Impressions: Service Date/Time: Saturday, April 08, 2017 10:00 - CONCLUSION: Normal examination with scattered plaque but no obvious two-dimensional stenosis. 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 Had a prolonged discussion with the patient and her son. The patient was seen and evaluated by Dr Trejo who completed face to face encounter and participated in evaluation and management. (Pati Ramachandran) Assessment and Plan The exam, history, and the medical decision-making described in the above note were completed with the assistance of the mid-level provider. I reviewed and agree with the findings presented. I attest that I had a [id number] encounter with the patient on the same day, and personally performed and documented my assessment and findings in the medical record. Will wait for Dr Mcwilliams asslament (Kayla Trejo MD) Pati Ramachandran Apr 08, 2017 14:51 Kayla Trejo MD Apr 08, 2017 14:58
[2017-04-08] MEDS: cefTRIAXone INJ 1,000 MG in SODIUM CHLORIDE 0.9% INJ 100 ML IV SCH (16:12)
[2017-04-08 19:12] LABS: APTT (PATIENT) 41.9 SEC (24.3-30.1)
[2017-04-08] MEDS ORDERED: TEMAZEPAM 7.5 MG CAP PO PRN (21:00)
[2017-04-08] MEDS: MONTELUKAST SODIUM 10 MG TAB PO SCH (21:48)
[2017-04-08] MEDS: ACETAMINOPHEN 325 MG TAB PO PRN (23:34)
[2017-04-09 01:28] LABS: APTT (PATIENT) 41.4 SEC (24.3-30.1)
[2017-04-09] MEDS: SODIUM CHLOR 0.9% 1000 ML INJ 1,000 ML IV SCH ×3 (02:32→14:45)
[2017-04-09 03:00] VITALS: BP 95/67; PULSE 84; PULSE 93; RESP 18; TEMP 98.6; O2SAT 95
[2017-04-09] MEDS: CHLORHEXIDINE GLUCONATE 2 % 1 PACK (2 CLOTHS) TOP SCH (04:00)
[2017-04-09 04:37] LABS: BICARBONATE 24.9 MEQ/L (21.0-32.0); POTASSIUM 4.1 MEQ/L (3.5-5.1)
[2017-04-09 04:41] LABS: HEMATOCRIT 25.3 % (35.0-46.0); MEAN CELL VOLUME 89.3 FL (80.0-100.0); MEAN CORPUSCULAR HGB CONC 34.7 % (32.0-36.0); PLATELET COUNT 237 TH/MM3 (150-450); RED BLOOD COUNT 2.83 MIL/MM3 (4.00-5.30); RED CELL DISTRIBUTION WIDTH 14.7 % (11.6-17.2); REVIEW FLAG FINAL; WHITE BLOOD COUNT 8.1 TH/MM3 (4.0-11.0)
[2017-04-09] MEDS ORDERED: LEVOTHYROXINE SODIUM 25 MCG TAB PO SCH (06:00)
[2017-04-09] MEDS: NITROGLYCERIN 2% OINT 1 GM PACKET TOPICAL SCH ×2 (06:00→12:59)
[2017-04-09 07:00] VITALS: BP 121/75; PULSE 85; PULSE 90; RESP 18; TEMP 98.6; O2SAT 93
[2017-04-09 08:51] VITALS: O2SAT 95
[2017-04-09] MEDS: ASPIRIN 81 MG CHEW TAB PO SCH (09:00)
[2017-04-09] MEDS: DOCUSATE SODIUM 50 MG/SENNA 8.6 MG TAB PO SCH ×2 (09:00→19:45)
[2017-04-09] MEDS: CHOLECALCIFEROL (VIT D3) 1000 UNIT TAB PO SCH (09:00)
[2017-04-09 11:00] VITALS: BP 143/83; PULSE 101; PULSE 109; RESP 18; TEMP 98.7; O2SAT 94
--- NOTE | 2017-04-09 11:22 | HHI.PR ---
Subjective Remarks The patient said that she was shaking. She did not know why. She denied shortness of breath or chest pain. She has not been ambulating that much. Discussed with nursing at the bedside. Objective Vitals Vital Signs Date Time Temp Pulse Resp B/P (MAP) Pulse Ox O2 Delivery O2 Flow Rate FiO2 04/09/17 08:51 95 21 04/09/17 07:00 93 Room Air 04/09/17 07:00 98.6 85 18 121/75 (90) 93 04/09/17 07:00 90 04/09/17 03:00 98.6 93 18 95/67 (76) 95 04/09/17 03:00 84 04/09/17 00:56 18 04/08/17 23:00 97.8 73 18 120/72 (88) 94 04/08/17 23:00 75 04/08/17 21:03 21 04/08/17 19:00 98.1 81 18 112/65 (81) 96 04/08/17 19:00 105 04/08/17 19:00 97 Room Air 04/08/17 15:00 99.6 70 18 110/68 (82) 97 04/08/17 15:00 86 I/O 04/08/17 04/08/17 04/08/17 04/09/17 04/09/17 04/09/17 07:00 15:00 23:00 07:00 15:00 23:00 Intake Total 340 ml 1050 ml 586 ml Output Total 1450 ml 900 ml 700 ml Balance -1110 ml 150 ml -114 ml Intake Oral 240 ml 1000 ml 480 ml IV Total 100 ml 50 ml 106 ml Output Urine Total 1450 ml 900 ml 700 ml # Voids 3 3 3 # Bowel Movements 0 1 0 Result Diagram: 04/09/17 0353 04/09/17 0353 Imaging Last Impressions Lower Extremity Ultrasound 04/08/17 0000 Signed Impressions: Service Date/Time: Saturday, April 08, 2017 09:43 - CONCLUSION: 1. Lower extremity venous mapping, as above. Chirag Langford MD Chest CT 04/08/17 0000 Signed Impressions: Service Date/Time: Saturday, April 08, 2017 01:38 - CONCLUSION: 1. Minimal atelectasis and effusions at the lung bases. 2. Status post sternotomy. 3. Gallstones. 4. Nonobstructing right renal stone. 5. Mild hiatal hernia. Ismael Cordon MD Carotid Artery Ultrasound 04/08/17 0000 Signed Impressions: Service Date/Time: Saturday, April 08, 2017 10:00 - CONCLUSION: Normal examination with scattered plaque but no obvious two-dimensional stenosis. Haseeb Clement MD Chest X-Ray 04/06/17 0000 Signed Impressions: Service Date/Time: Thursday, April 06, 2017 22:09 - CONCLUSION: Borderline cardiomegaly. Ismael Cordon MD Objective Remarks GENERAL: Resting comfortably. HEENT: NC, AT. CARDIOVASCULAR: Regular rate and rhythm. RESPIRATORY: No accessory muscle use. Clear to auscultation. Breath sounds equal bilaterally. GASTROINTESTINAL: Abdomen soft, non-tender, nondistended. Hepatic and splenic margins not palpable. MUSCULOSKELETAL: TR LE edema. NEUROLOGICAL: Awake and alert. No obvious cranial nerve deficits. Motor grossly within normal limits. Five out of 5 muscle strength in the arms and legs. Normal speech. PSYCHIATRIC: Appropriate mood and affect; insight and judgment normal. Procedures Catheterization Medications and IVs Current Medications Medications (Trade) Dose Ordered Sig/Rona Route Start Time Stop Time Status Last Admin Sodium Chloride 1,000 ml @ 50 mls/hr Q20H IV 04/03/17 18:45 04/05/17 02:12 (Mag-Ox) 800 mg UNSCH PRN PO 04/03/17 19:00 Magnesium Sulfate 4 gm/Sodium Chloride 100 ml @ 50 mls/hr UNSCH PRN IV 04/03/17 19:00 Magnesium Sulfate 2 gm/Sodium Chloride 100 ml @ 50 mls/hr UNSCH PRN IV 04/03/17 19:00 Potassium Chloride 100 ml @ 50 mls/hr Q2H PRN IV 04/03/17 19:00 Potassium Chloride 100 ml @ 50 mls/hr Q2H PRN IV 04/03/17 19:00 Potassium Chloride 100 ml @ 50 mls/hr Q2H PRN IV 04/03/17 19:00 Potassium Chloride 100 ml @ 25 mls/hr UNSCH PRN IV 04/03/17 19:00 (K-Phos) 2,000 mg Q4H PRN PO 04/03/17 19:00 (K-Phos) 2,000 mg UNSCH PRN PO/TUBE 04/03/17 19:00 Potassium Phosphate 30 mmol/ Sodium Chloride 260 ml @ 42 mls/hr UNSCH PRN IV 04/03/17 19:00 Sodium Phosphate 30 mmol/Sodium Chloride 250 ml @ 42 mls/hr UNSCH PRN IV 04/03/17 19:00 (Tylenol) 650 mg Q6H PRN PO 04/03/17 19:00 04/08/17 23:34 (Zofran Inj) 4 mg Q6H PRN IV PUSH 04/03/17 19:00 Miscellaneous Information 1 Q361D XX 04/03/17 19:00 (Chlorhexidine 2% Cloth) Taper DAILY@04 TOP 04/04/17 04:00 03/31/18 03:59 04/08/17 04:00 (Chlorhexidine 2% Cloth) 3 pack UNSCH PRN TOP 04/03/17 19:00 (Emelina-Colace) 1 tab BID PO 04/03/17 21:00 04/09/17 09:00 (Vitamin D3) 2,000 units DAILY PO 04/04/17 09:00 04/09/17 09:00 (Singulair) 10 mg HS PO 04/03/17 21:00 04/08/17 21:48 (Aspirin Chew) 81 mg DAILY PO 04/05/17 09:00 04/09/17 09:00 (Lopressor) 25 mg Q12HR PO 04/05/17 21:00 Future Hold 04/06/17 20:49 (Nitroglycerin 2% Oint) 1 inch Q8HR TOPICAL 04/05/17 17:45 04/08/17 06:00 (Narcan Inj) 0.4 mg UNSCH PRN IV PUSH 04/06/17 14:00 (Milk Of Magnesia Liq) 30 ml Q12H PRN PO 04/06/17 14:00 04/06/17 14:09 (Senokot) 17.2 mg Q12H PRN PO 04/06/17 14:00 (Dulcolax Supp) 10 mg DAILY PRN RECTAL 04/06/17 14:00 (Lactulose Liq) 30 ml DAILY PRN PO 04/06/17 14:00 Sodium Chloride 1,000 ml @ 100 mls/hr Q10H IV 04/06/17 14:32 04/11/17 14:31 (Restoril) 7.5 mg HS PRN PO 04/08/17 21:00 Ceftriaxone Sodium 1000 mg/ Sodium Chloride 100 ml @ 200 mls/hr Q24H IV 04/08/17 15:00 04/11/17 15:29 04/08/17 16:12 (Synthroid) 37.5 mcg DAILY@0600 PO 04/09/17 06:00 04/09/17 06:00 (Pill Splitter) 1 ea UNSCH PRN OTHER 04/08/17 11:00 Heparin Sodium/ Dextrose 250 ml @ 9 mls/hr TITRATE PRN IV 04/08/17 11:45 04/08/17 12:49 (Heparin Inj) 5,000 units UNSCH PRN IV PUSH 04/08/17 11:45 (Heparin Inj) 2,500 units UNSCH PRN IV PUSH 04/08/17 11:45 A/P Problem List: (1) Normocytic anemia ICD Code: D64.9 - Anemia, unspecified (2) Severe mitral stenosis by prior echocardiogram ICD Code: I05.0 - Rheumatic mitral stenosis (3) Hyponatremia ICD Code: E87.1 - Hypo-osmolality and hyponatremia (4) History of atrial flutter ICD Code: Z86.79 - Personal history of other diseases of the circulatory system (5) Chronic anticoagulation 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 (6) Hypothyroidism ICD Code: E03.9 - Hypothyroidism, unspecified (7) Dyslipidemia ICD Code: E78.5 - Hyperlipidemia, unspecified (8) History of hypertension ICD Code: Z86.79 - Personal history of other diseases of the circulatory system (9) Hyperkalemia ICD Code: E87.5 - Hyperkalemia (10) Cardiomyopathy ICD Code: I42.9 - Cardiomyopathy, unspecified (11) Dehydration ICD Code: E86.0 - Dehydration Status: Acute (12) Dizziness ICD Code: R42 - Dizziness and giddiness Status: Acute (13) Elevated troponin ICD Code: R74.8 - Abnormal levels of other serum enzymes Status: Acute (14) RAMU (acute kidney injury) ICD Code: N17.9 - Acute kidney failure, unspecified Status: Acute Assessment and Plan NSTEMI/ Acute on chronic CHF/ Afib Transfered from [facility] for cardiac catheterization as the pt's trops peaked at 1. The pt has coronary artery disease status post CABG 3 with mitral valve repair in 1996. Severe mitral stenosis and EF 57% by RAMILA 01/05. She was initially hypotensive. Slow A fib noted on telemetry 04/06 and then pause. She became unresponsive without palpable pulse so atropine 1 mg IV was administered with couple of chest compressions and she became responsive. EKG with junctional rhythm, minimal ST depression inferiorly with T wave inversion, no ST elevation. BNP was markedly elevated. Cath showed: Severe mitral stenosis; Severe three-vessel coronary artery disease. CT surgery consult appreciated. - Currently holding Dronedarone 400 mg by mouth twice a day, valsartan 320 mg by mouth daily, spironolactone 25 mg twice a day. Patient's been off torsemide 20 mg every other day for several weeks. - work-up per CTS. - Holding anticoagulation per cardiology request. Hypotension Improved after IVFs. - hold antihypertensive meds. Abnormal TSH while on Synthroid TSH was noted to be borderline low. T3 and free T4 noted. - decrease to 25 mcg daily with outpatient follow-up. Anemia Hgb is lower than baseline. B12 level low normal. - check Hemoccult. - B12 IM x 1. - follow CBC as needed. Renal insufficiency Improved with hydration. - avoid nephrotoxins. DVT ppx per cardiology Discharge Planning CTS work-up pending Problem Qualifiers (1) Hypothyroidism: Qualified Codes: E03.9 - Hypothyroidism, unspecified (2) Cardiomyopathy: Qualified Codes: I42.9 - Cardiomyopathy, unspecified Seymour Tamayo DO Apr 09, 2017 11:22
[2017-04-09 15:00] VITALS: BP 128/72; PULSE 73; PULSE 95; RESP 18; TEMP 98.6; O2SAT 92
--- NOTE | 2017-04-09 15:08 | PD.CAR.PN ---
CVT Progress Note Subjective/Hospital Course: 82-year-old female, patient of Dr. Mitchell and Dr. Trejo Presented to the doctor's office. It was noted that her blood pressure was low, she had been feeling light-headed, not feeling well for the last few days, feeling fatigued and tired. She was found to be hypotensive with an elevated creatinine and potassium, also an elevated troponin which may have been also secondary to her elevated creatinine and BNP. She was hydrated with IV fluids. Her creatinine on admission was 1.70, potassium 5.6, troponin 0.86. Her EKG showed afib with poor r wave progression ant leads , on 04/06 22:00 [t was up walking with nurse , felt light-headed, found to be bradycardic with slow atrial fibrillation, then became unresponsive, Code Blue called, CPR , ACLS performed with atropine . Home med Multaq which was placed on hold. She underwent a cardiac cath this morning for a non-STEMI cardiac arrest, history of severe mitral stenosis, history of prior coronary artery bypass grafting 1996. The right- sided heart cath showed a cardiac output of 4.7, wedge pressure 29 with a mean of 25, PA pressure 47/20, RV pressure 47 with right ventricular end-diastolic pressure of 12. The left main had some diffuse disease. The LAD was occluded proximally. The OM branches of the circumflex were occluded proximally. There was diffuse disease of about 60-70 in the OM jump graft from the OM1 to the OM2. The Y-graft to the OM2 was widely patent. The OM1 had a 90% stenosis. The CHANG was widely patent and attached to the LAD. Distal to the attachment was a 50% stenosis and a 99% stenosis. Request was for surgery to the OM1, OM2 and to the distal LAD, and also mitral valve replacement. STS risk for mortality 14.78 % PAST MEDICAL HISTORY 1. Coronary artery disease with prior [place]., Mitral valve stenosis, Atrial flutter with prior ablation, Hypertension, Hypothyroidism, normocytic anemia PAST SURGICAL HISTORY 1. Coronary artery bypass graft x3 with mitral valve repair 1996 in [place]. 2. AP ablation. 04/08 CT chest completed : . Calcification is seen the aortic arch. Calcification seen in the [place] coronary arteries. carotid US, PFT, leg vein mapping pending no further bradycardia noted since 04/06 remains in afib, Heparin gtt started, gentle diuresis all studies will be evaluated by Dr Mcwilliams / and decision will be made at that time, and if pt wishes to consent she may need eval by tertiary center 04/09 Decision is for transfer to [facility] accepted by Dr Shayne Okeefe CV[facility] to eval for redo MVR/ CABG sts score 14 case management aware Objective: GENERAL: very anxious and emotional SKIN: Warm and dry. HEAD: Normocephalic. EYES: No scleral icterus. No injection or drainage. NECK: Supple, trachea midline. No JVD or lymphadenopathy. CARDIOVASCULAR: Regular rate and rhythm without 3/6 sm murmurs, RESPIRATORY: Breath sounds equal bilaterally, diminished in bases No accessory muscle use. GASTROINTESTINAL: Abdomen soft, non-tender, nondistended. MUSCULOSKELETAL: No cyanosis, or edema. BACK: Nontender without obvious deformity. No CVA tenderness. Vital Signs Date Time Temp Pulse Resp B/P (MAP) Pulse Ox O2 Delivery O2 Flow Rate FiO2 04/09/17 11:00 109 04/09/17 11:00 98.7 101 18 143/83 (103) 94 04/09/17 08:51 95 21 04/09/17 07:00 93 Room Air 04/09/17 07:00 98.6 85 18 121/75 (90) 93 04/09/17 07:00 90 04/09/17 03:00 98.6 93 18 95/67 (76) 95 04/09/17 03:00 84 04/09/17 00:56 18 04/08/17 23:00 97.8 73 18 120/72 (88) 94 04/08/17 23:00 75 04/08/17 21:03 21 04/08/17 19:00 98.1 81 18 112/65 (81) 96 04/08/17 19:00 105 04/08/17 19:00 97 Room Air Labs: Laboratory Tests Test 04/09/17 03:53 White Blood Count 8.1 TH/MM3 (4.0-11.0) Red Blood Count 2.83 MIL/MM3 (4.00-5.30) Hemoglobin 8.8 GM/DL (11.6-15.3) Hematocrit 25.3 % (35.0-46.0) Mean Corpuscular Volume 89.3 FL (80.0-100.0) Mean Corpuscular Hemoglobin 31.0 PG (27.0-34.0) Mean Corpuscular Hemoglobin Concent 34.7 % (32.0-36.0) Red Cell Distribution Width 14.7 % (11.6-17.2) Platelet Count 237 TH/MM3 (150-450) Mean Platelet Volume 7.2 FL (7.0-11.0) Activated Partial Thromboplast Time 47.0 SEC (24.3-30.1) Blood Urea Nitrogen 29 MG/DL (7-18) Creatinine 1.00 MG/DL (0.50-1.00) Random Glucose 95 MG/DL (74-106) Calcium Level 9.7 MG/DL (8.5-10.1) Sodium Level 135 MEQ/L (136-145) Potassium Level 4.1 MEQ/L (3.5-5.1) Chloride Level 102 MEQ/L (98-107) Carbon Dioxide Level 24.9 MEQ/L (21.0-32.0) Anion Gap 8 MEQ/L (5-15) Estimat Glomerular Filtration Rate 53 ML/MIN (>89) Result Diagram: 04/09/17 0353 04/09/17 035 Telemetry: afib (1) Cardiac arrest (2) Coronary artery disease Plan: ASA, no BB 2/2 recent asystole cardiac arrest needs redo sternotomy MVR and CABG sts risk of mortality 14 accepted at [facility] Dr Shayne Okeefe await transfer and bed (3) Severe mitral stenosis by prior echocardiogram Plan: needs mitral valve replacement (4) Normocytic anemia (5) Chronic anticoagulation Plan: on heparin (6) History of atrial flutter (7) UTI (urinary tract infection) Plan: on antibiotics Jaymie Koch Apr 09, 2017 15:08
[2017-04-09] MEDS ORDERED: LEVO25TA4 PO (15:35)
[2017-04-09] MEDS ORDERED: ASPI81 PO (15:35)
[2017-04-09] MEDS ORDERED: [UNRECOGNIZED DRUG - CODE] IV (15:38)
--- NOTE | 2017-04-09 15:39 | HHI.DCPOC ---
Discharge Care Plan Diagnosis: (1) UTI (urinary tract infection) (2) Cardiac arrest (3) Coronary artery disease (4) Severe mitral stenosis by prior echocardiogram (5) History of atrial flutter (6) Chronic anticoagulation (7) Normocytic anemia Goals to Promote Your Health * To prevent worsening of your condition and complications * To maintain your health at the optimal level Directions to Meet Your Goals Take your medications as prescribed Follow your dietary instruction Follow activity as directed Keep your appointments as scheduled Take your immunizations and boosters as scheduled If your symptoms worsen call your PCP, if no PCP go to Urgent Care Center or Emergency Room Smoking is Dangerous to Your Health. Avoid second hand smoke Call the 24-hour hour crisis hotline for domestic abuse at Seymour Tamayo DO Apr 09, 2017 15:39
[2017-04-09] MEDS: cefTRIAXone INJ 1,000 MG in SODIUM CHLORIDE 0.9% INJ 100 ML IV SCH (15:42)
[2017-04-09] MEDS: HEPARIN 25,000 UNITS-D5W 250 ML - PREMIX IV PRN (15:45)
--- NOTE | 2017-04-09 15:46 | HHI.DS ---
Discharge Summary Admission Date Apr 03, 2017 at 19:15 Discharge Date: Apr 09, 2017 Admitting Diagnosis RAMU, elevated troponin (1) Normocytic anemia ICD Code: D64.9 - Anemia, unspecified (2) Severe mitral stenosis by prior echocardiogram ICD Code: I05.0 - Rheumatic mitral stenosis Diagnosis: Principal (3) Hyponatremia ICD Code: E87.1 - Hypo-osmolality and hyponatremia (4) History of atrial flutter ICD Code: Z86.79 - Personal history of other diseases of the circulatory system (5) Chronic anticoagulation ICD Code: Z79.01 - halfway (current) use of anticoagulants (6) Hypothyroidism ICD Code: E03.9 - Hypothyroidism, unspecified (7) Dyslipidemia ICD Code: E78.5 - Hyperlipidemia, unspecified (8) History of hypertension ICD Code: Z86.79 - Personal history of other diseases of the circulatory system (9) Hyperkalemia ICD Code: E87.5 - Hyperkalemia (10) Cardiomyopathy ICD Code: I42.9 - Cardiomyopathy, unspecified Diagnosis: Principal (11) Dehydration ICD Code: E86.0 - Dehydration Status: Acute (12) Dizziness ICD Code: R42 - Dizziness and giddiness Status: Acute (13) Elevated troponin ICD Code: R74.8 - Abnormal levels of other serum enzymes Diagnosis: Principal Status: Acute (14) RAMU (acute kidney injury) ICD Code: N17.9 - Acute kidney failure, unspecified Status: Acute Procedures Catheterization Brief History - From Admission This is an 82-year-old female. Did admission 04/03/2017. Past medical history includes cardiomyopathy, hard of hearing left ear, coronary artery disease status post CABG 3 with mitral valve repair, atrial flutter with history of ablation, dyslipidemia, hypertension hypothyroidism.. Yesterday afternoon, patient was sent to [place] [facility] for primary care physician's office for elevated cardiac enzymes and possible IVF. Pt was seen at primary care physician's office 04/03 secondary to "feeling lightheaded and not herself for several days. Said she feels more lightheaded when she stands up from sitting position. She does not have any syncopal episodes and no specific episode where she felt like she almost pass out. In the ED, patient was noted to be hypotensive. Patient elevated potassium 5.6. Creatinine 1.7. Elevated troponin 0.20. She denies any chest pain or shortness of breath. Received 2 L normal saline along with 250 cc's of 5% albumin. EKG revealed Q waves in V2 and V3 with intermittent first AV block possibly intermittent A. fib. Cardiology was notified and recommended gentle hydration with normal saline at 50 cc an hour with consultation for further evaluation. Warfarin has been held for the request. The present time, patient is currently going of back pain and "wants to go home ". She says she feels better after hydration prior to admission. Her blood pressure is currently within normal limits.. CBC/BMP: 04/09/17 0353 04/09/17 0353 Significant Findings Laboratory Tests Test 04/06/17 22:47 04/07/17 03:29 04/07/17 12:31 04/08/17 04:13 Blood Urea Nitrogen 25 MG/DL (7-18) 22 MG/DL (7-18) 29 MG/DL (7-18) Creatinine 1.05 MG/DL (0.50-1.00) Random Glucose 128 MG/DL (74-106) Sodium Level 134 MEQ/L (136-145) 134 MEQ/L (136-145) 135 MEQ/L (136-145) Estimat Glomerular Filtration Rate 50 ML/MIN (>89) 59 ML/MIN (>89) 54 ML/MIN (>89) Troponin I 1.00 NG/ML (0.02-0.05) 0.99 NG/ML (0.02-0.05) 0.98 NG/ML (0.02-0.05) Red Blood Count 2.74 MIL/MM3 (4.00-5.30) 2.80 MIL/MM3 (4.00-5.30) Hemoglobin 8.7 GM/DL (11.6-15.3) 8.8 GM/DL (11.6-15.3) Hematocrit 24.6 % (35.0-46.0) 25.2 % (35.0-46.0) Neutrophils (%) (Auto) 83.1 % (16.0-70.0) Neutrophils # (Auto) 8.5 TH/MM3 (1.8-7.7) Prothrombin Time 11.8 SEC (9.8-11.6) B-Type Natriuretic Peptide 1446 PG/ML (0-100) Iron Level 45 MCG/DL (50-170) Total Iron Binding Capacity 245 MCG/DL (250-450) Percent Iron Saturation 18.4 % (20-50) Ferritin 281 NG/ML (8-252) Test 04/08/17 18:16 04/09/17 00:17 04/09/17 03:53 Activated Partial Thromboplast Time 41.9 SEC (24.3-30.1) 41.4 SEC (24.3-30.1) 47.0 SEC (24.3-30.1) Red Blood Count 2.83 MIL/MM3 (4.00-5.30) Hemoglobin 8.8 GM/DL (11.6-15.3) Hematocrit 25.3 % (35.0-46.0) Blood Urea Nitrogen 29 MG/DL (7-18) Sodium Level 135 MEQ/L (136-145) Estimat Glomerular Filtration Rate 53 ML/MIN (>89) Imaging Last Impressions Lower Extremity Ultrasound 04/08/17 0000 Signed Impressions: Service Date/Time: Saturday, April 08, 2017 09:43 - CONCLUSION: 1. Lower extremity venous mapping, as above. Chirag Langford MD Chest CT 04/08/17 0000 Signed Impressions: Service Date/Time: Saturday, April 08, 2017 01:38 - CONCLUSION: 1. Minimal atelectasis and effusions at the lung bases. 2. Status post sternotomy. 3. Gallstones. 4. Nonobstructing right renal stone. 5. Mild hiatal hernia. Ismael Cordon MD Carotid Artery Ultrasound 04/08/17 0000 Signed Impressions: Service Date/Time: Saturday, April 08, 2017 10:00 - CONCLUSION: Normal examination with scattered plaque but no obvious two-dimensional stenosis. Haseeb Clement MD Chest X-Ray 04/06/17 0000 Signed Impressions: Service Date/Time: Thursday, April 06, 2017 22:09 - CONCLUSION: Borderline cardiomegaly. Ismael Cordon MD PE at Discharge GENERAL: Resting comfortably. HEENT: NC, AT. CARDIOVASCULAR: Regular rate and rhythm. RESPIRATORY: No accessory muscle use. Clear to auscultation. Breath sounds equal bilaterally. GASTROINTESTINAL: Abdomen soft, non-tender, nondistended. Hepatic and splenic margins not palpable. MUSCULOSKELETAL: TR LE edema. NEUROLOGICAL: Awake and alert. No obvious cranial nerve deficits. Motor grossly within normal limits. Five out of 5 muscle strength in the arms and legs. Normal speech. PSYCHIATRIC: Appropriate mood and affect; insight and judgment normal. Hospital Course NSTEMI/ Acute on chronic CHF/ Afib Transfered from [facility] for cardiac catheterization as the pt's trops peaked at 1. The pt has coronary artery disease status post CABG 3 with mitral valve repair in 1996. Severe mitral stenosis and EF 57% noted on RAMILA (01/05). She was initially hypotensive. Slow A fib noted on telemetry 04/06 and then pause. She became unresponsive without palpable pulse so atropine 1 mg IV was administered with a couple of chest compressions and she became responsive. EKG with junctional rhythm, minimal ST depression inferiorly with T wave inversion , no ST elevation. BNP was markedly elevated. Cath showed: Severe mitral stenosis; Severe three-vessel coronary artery disease. CT surgery consulted. Currently holding Dronedarone 400 mg by mouth twice a day, valsartan 320 mg by mouth daily, spironolactone 25 mg twice a day. Patient's been off torsemide 20 mg every other day for several weeks. Work-up per CTS performed. The pt was started on a heparin gtt. She will be transferred to a tertiary care center for evaluation for further intervention. She will continue her current medication regimen including the heparin gtt. Abnormal TSH On Synthroid. TSH was noted to be borderline low. T3 and free T4 were checked. We decreased the dose of levothyroxine to 25 mcg daily. She will need to repeat the TSH and adjust her medications as needed. Anemia B12 level low normal. She received a B12 injection IM x 1. Renal insufficiency Improved with hydration. Medications held as above. Pt Condition on Discharge: Stable Discharge Disposition: Disch to Another Hospital Discharge Time: > 30 minutes Discharge Instructions DIET: Follow Instructions for: Heart Healthy Diet Activities you can perform: Weight Bearing as [place] Follow up Referrals: Cardiology - 1 Week PCP Follow-up - 1 Week New Medications: Heparin Sod,Porcine/0.9 % NaCl (Heparin 25,000 Unit/250 ml-Ns) 25,000 Unit/250 Ml (100 Unit/Ml) Iv.soln 1 UNIT IV CONTINUOUS for Heart for 1 Day, UNITS Low dose heparin gtt per protocol Aspirin (Tgt Aspirin) 81 Mg Chw 81 MG PO DAILY for heart, #30 EA Levothyroxine (Levothyroxine) 25 Mcg Tab 25 MCG PO DAILY@0600 for Thyroid, #30 TAB Continued Medications: Cholecalciferol (Vitamin D3) 2,000 Unit Cap 2000 UNITS PO DAILY for Nutritional Supplement, #56 CAP 0 Refills Flaxseed (Linseed) (Flaxseed Oil [place]-3) 1,000 Mg Cap Montelukast (Montelukast) 10 Mg Tab 10 MG PO HS, #30 TAB 0 Refills Discontinued Medications: Dronedarone ([place]) 400 Mg Tab 400 MG PO BID for Regulate Heart Beat, TAB 0 Refills Levothyroxine (Levothyroxine) 50 Mcg Tab 50 MCG PO DAILY for Thyroid, #30 TAB 0 Refills Spironolactone (Spironolactone) 25 Mg Tab 25 MG PO BIDPC, #60 TAB 0 Refills Torsemide (Torsemide) 20 Mg Tab 20 MG PO EVERY OTHER DAY, #60 TAB 0 Refills Valsartan (Valsartan) 320 Mg Tab 320 MG PO DAILY, #30 TAB 0 Refills Warfarin (Warfarin) 5 Mg Tab 5 MG PO DAILY for Blood Clot Prevention, #30 TAB 0 Refills Seymour Tamayo DO Apr 09, 2017 15:46
[2017-04-09 19:00] VITALS: BP 130/79; PULSE 112; RESP 18; TEMP 99; O2SAT 97
[2017-04-09] MEDS: MONTELUKAST SODIUM 10 MG TAB PO SCH (19:45)
[2017-04-10] MEDS ORDERED: LEVOTHYROXINE SODIUM 25 MCG TAB PO SCH (06:00)
== END 2017-04-09 21:45 | disposition short-term general hospital (02) | DRG 280 ==
LOC: PHED 15:44 → PHEDA 19:15 → PHICU 20:46 → HCVI 04-05 16:45
PROVIDERS: ADMIT Hospitalist; ATTEND Hospitalist
PROC: 5A12012 Performance of Cardiac Output, Single, Manual (ICD-10-PCS; 2017-04-06)
PROC: B2181ZZ Fluoroscopy of Left Internal Mammary Bypass Graft using Low Osmolar Contrast (ICD-10-PCS; 2017-04-07)
PROC: B2111ZZ Fluoroscopy of Multiple Coronary Arteries using Low Osmolar Contrast (ICD-10-PCS; 2017-04-07)
PROC: B2131ZZ Fluoroscopy of Multiple Coronary Artery Bypass Grafts using Low Osmolar Contrast (ICD-10-PCS; 2017-04-07)
PROC: 4A023N8 Measurement of Cardiac Sampling and Pressure, Bilateral, Percutaneous Approach (ICD-10-PCS; principal; 2017-04-07 08:45)
DX: I21.4 Non-ST elevation (NSTEMI) myocardial infarction (principal); I46.9 Cardiac arrest, cause unspecified; N17.9 Acute kidney failure, unspecified; I95.9 Hypotension, unspecified; I42.9 Cardiomyopathy, unspecified; E87.1 Hypo-osmolality and hyponatremia; I11.0 Hypertensive heart disease with heart failure; I50.9 Heart failure, unspecified; N39.0 Urinary tract infection, site not specified; E87.5 Hyperkalemia; E66.01 Morbid (severe) obesity due to excess calories; E86.0 Dehydration; I48.2 Chronic atrial fibrillation; I05.2 Rheumatic mitral stenosis with insufficiency; D64.9 Anemia, unspecified; I25.10 Atherosclerotic heart disease of native coronary artery without angina pectoris; E03.9 Hypothyroidism, unspecified; E78.5 Hyperlipidemia, unspecified; F41.9 Anxiety disorder, unspecified; H91.92 Unspecified hearing loss, left ear; I44.0 Atrioventricular block, first degree; J45.909 Unspecified asthma, uncomplicated; M81.0 Age-related osteoporosis without current pathological fracture; Z79.01 Long term (current) use of anticoagulants; I25.2 Old myocardial infarction; Z95.1 Presence of aortocoronary bypass graft
CPT/HCPCS: 71010; 71250; 80048; 80076; 81001; 82150; 82607; 82728; 82746; 82810; 83540; 83550; 83605; 83690; 83735; 83880; 84100; 84132; 84295; 84439; 84443; 84480; 84484; 85025; 85027; 85610; 85730; 87077; 87086; 87186; 87641; 93005; 93306; 93461; 93880; 93970; 93998; 94010; 94150; 94640; 94667; 94668; 96360; 99152; 99153; C1769; C1893; J0692; J0696; J1265; J1644; J1940; J2250; J3010; J3420; J3475; J7030; J7040; P9045; P9047; Q9967